=== PATIENT | female | born 1940 | race Caucasian/White ===

== ENCOUNTER 2021-01-08 06:50 | Outpatient (REF) | payer MEDICARE, SELFPAY ==
[2021-01-08 11:42] LABS: Hemoglobin 12.7 g/dl (12.0-16.0); Mean Corpuscular HGB Conc 32.6 g/dl (31.0-35.0); Mean Corpuscular Hemoglobin 29.3 pg (27.0-33.0); Mean Corpuscular Volume 89.9 fL (80-98); Mean Platelet Volume 10.2 fL (9.4-12.3); Platelet Count 297 X10*3/uL (160-400); Red Blood Count 4.34 X10*6/uL (4.20-5.50); Red Cell Distribution Width 13.2 % (11.0-16.0); White Blood Count 6.8 X10*3/uL (4.8-10.8)
[2021-01-08 11:52] LABS: Alanine Aminotransferase 15 U/L (0-31); Albumin Level 3.8 g/dL (3.5-5.0); Alkaline Phosphatase 95 U/L (39-117); Anion Gap 14 (12-20); Aspartate Amino Transferase 17 U/L (5-31); Bilirubin Total 0.7 mg/dL (0.0-1.0); Blood Urea Nitrogen 22 mg/dL (9-16); Calcium 8.8 mg/dL (8.4-10.2); Carbon Dioxide 25 mmol/L (22-29); Chloride 105 mmol/L (96-108); Estimated Glomerular Filt Rate > 60; Glucose Fasting 103 mg/dL (60-99); Potassium 4.2 mmol/L (3.3-5.1); Sodium 140 mmol/L (135-145)
[2021-01-08 12:12] LABS: Thyroid Stimulating Hormone 2.08 uIU/mL (0.32-4.0)
== END 2021-01-08 06:51 | disposition home or self-care (01) ==
LOC: HO.HMGCLDS 06:50
PROVIDERS: PCP Internal Medicine; Visit Provider Internal Medicine
DX: E78.2 Mixed hyperlipidemia (principal); I10 Essential (primary) hypertension
CPT/HCPCS: 36415; 80053; 84443; 85027

== ENCOUNTER 2021-06-29 11:18 | Outpatient (REF) | payer MEDICARE, SELFPAY ==
--- NOTE | ~2021-06-29 | XR_ITS ---
EXAMINATION: XR RIBS, RIGHT CLINICAL INFORMATION: Previous chest x-rays most recent June 2019 COMPARISON: Previous chest x-ray most recent June 2019 TECHNIQUE: 3 views of the right ribs and one view of the chest were obtained. FINDINGS: The cardiac and mediastinal contours are normal. The lungs are clear. There is no pleural effusion or pneumothorax. No right rib fracture or bone lesion is seen. There is an old left sixth rib fracture. There are degenerative changes of the spine. XR/XR ribs RT min 3V w CXR1V IMPRESSION: No evidence for acute disease in the chest. No right rib fracture or bone lesion is seen. Degenerative changes of the spine.
== END 2021-06-29 11:19 | disposition home or self-care (01) ==
LOC: HO.HMGCX 11:18
PROVIDERS: PCP Internal Medicine; Visit Provider Internal Medicine
DX: Z13.89 Encounter for screening for other disorder (principal)
CPT/HCPCS: 71101

== ENCOUNTER 2021-07-24 07:23 | Outpatient (REF) | payer MEDICARE, SELFPAY ==
[2021-07-24 11:45] LABS: Hematocrit 40.2 % (37-47); Hemoglobin 12.9 g/dl (12.0-16.0); Mean Corpuscular HGB Conc 32.1 g/dl (31.0-35.0); Mean Corpuscular Hemoglobin 29.3 pg (27.0-33.0); Mean Corpuscular Volume 91.2 fL (80-98); Mean Platelet Volume 10.2 fL (9.4-12.3); Platelet Count 259 X10*3/uL (160-400); Red Blood Count 4.41 X10*6/uL (4.20-5.50); Red Cell Distribution Width 13.6 % (11.0-16.0); White Blood Count 5.4 X10*3/uL (4.8-10.8)
[2021-07-24 12:36] LABS: Alanine Aminotransferase 14 U/L (0-31); Albumin Level 3.7 g/dL (3.5-5.0); Alkaline Phosphatase 91 U/L (39-117); Anion Gap 14 (12-20); Aspartate Amino Transferase 15 U/L (5-31); Bilirubin Total 0.5 mg/dL (0.0-1.0); Blood Urea Nitrogen 20 mg/dL (9-16); Calcium 9.1 mg/dL (8.4-10.2); Carbon Dioxide 21 mmol/L (22-29); Chloride 110 mmol/L (96-108); Estimated Glomerular Filt Rate > 60; Glucose Fasting 116 mg/dL (60-99); Potassium 4.5 mmol/L (3.3-5.1); Sodium 140 mmol/L (135-145); Total Protein 6.6 g/dL (6.5-8.0)
== END 2021-07-24 07:24 | disposition home or self-care (01) ==
LOC: HO.HMGCLDS 07:23
PROVIDERS: PCP Internal Medicine; Visit Provider Internal Medicine
DX: E78.5 Hyperlipidemia, unspecified (principal); I10 Essential (primary) hypertension
CPT/HCPCS: 36415; 80053; 85027

== ENCOUNTER 2022-04-29 07:35 | Outpatient (REF) | payer MEDICARE, SELFPAY ==
[2022-04-29 11:42] LABS: Hematocrit 40.6 % (37.0-47.0); Hemoglobin 12.8 g/dl (12.0-16.0); Mean Corpuscular HGB Conc 31.5 g/dl (31.0-35.0); Mean Corpuscular Hemoglobin 28.6 pg (27.0-33.0); Mean Corpuscular Volume 90.6 fL (80.0-98.0); Platelet Count 295 X10*3/uL (160-400); Red Blood Count 4.48 X10*6/uL (4.20-5.50); Red Cell Distribution Width 13.3 % (11.0-16.0); White Blood Count 6.6 X10*3/uL (4.8-10.8)
[2022-04-29 12:09] LABS: Alanine Aminotransferase 17 U/L (0-31); Alkaline Phosphatase 93 U/L (39-117); Anion Gap 13 (12-20); Aspartate Amino Transferase 20 U/L (5-31); Bilirubin Total 0.8 mg/dL (0.0-1.0); Blood Urea Nitrogen 23 mg/dL (9-16); Calcium 9.3 mg/dL (8.4-10.2); Carbon Dioxide 25 mmol/L (22-29); Chloride 106 mmol/L (96-108); Cholesterol 205 mg/dL; Estimated Glomerular Filt Rate 58; Glucose Fasting 109 mg/dL (60-99); HDL Cholesterol 42 mg/dL; LDL Cholesterol Calculated 129 mg/dl; Potassium 4.7 mmol/L (3.3-5.1); Sodium 139 mmol/L (135-145); Total Protein 7.1 g/dL (6.5-8.0); Triglycerides 171 mg/dL
[2022-04-29 12:14] LABS: TSH reflex Free T4 2.11 uIU/mL (0.32-4.0)
== END 2022-04-29 07:36 | disposition home or self-care (01) ==
LOC: HO.HMGCLDS 07:35
PROVIDERS: Visit Provider Internal Medicine
DX: E78.5 Hyperlipidemia, unspecified (principal); I10 Essential (primary) hypertension
CPT/HCPCS: 36415; 80053; 80061; 84443; 85027

== ENCOUNTER 2022-07-18 14:37 | Outpatient (REF) | payer MEDICARE, SELFPAY ==
[2022-07-18 14:52] LABS: Appearance Urine Clear; Color Urine Yellow; Glucose Urine UA Negative (Negative); Leukocyte Esterase Urine Trace (Negative); Nitrite Urine Negative (Negative); PH 5.5 (5.0-9.0); Specific Gravity - Urine <= 1.005 (1.005-1.025); UMIC TRIGGER UACC YES; Urine Blood Negative (Negative); Urine Ketones Negative (Negative); Urine Protein Negative (Neg-Trace)
[2022-07-18 14:58] LABS: Bacteria Urine None Seen (None Seen); Hyaline Casts Urine 0-2 /LPF (0-2); RBC Urine 0-2 /HPF (0-2); Squamous Epithelial Cell Urine 0-2 /HPF (0-2); WBC Urine 0-5 /HPF (0-5)
== END 2022-07-18 14:38 | disposition home or self-care (01) ==
LOC: HO.LNP 14:37
PROVIDERS: Visit Provider Internal Medicine
DX: N39.0 Urinary tract infection, site not specified (principal)
CPT/HCPCS: 81001

== ENCOUNTER 2022-11-06 08:00 | Outpatient (REF) | payer MEDICARE, SELFPAY ==
[2022-11-06 11:11] LABS: MANUAL DIFF FLAG NO
[2022-11-06 11:29] LABS: Basophils Absolute Auto 0.1 X10*3/uL (0.0-0.2); Basophils Percent Auto 0.8 % (0-2); Eosinophils Absolute Auto 0.1 X10*3/uL (0.0-0.4); Hematocrit 42.2 % (37.0-47.0); Hemoglobin 13.5 g/dl (12.0-16.0); Imm Gran Abs Auto 0.02 X10*3/uL (0.00-0.03); Imm Gran Pct Auto 0.3 % (0.0-0.4); Lymphocytes Absolute Auto 2.4 X10*3/uL (1.2-4.9); Lymphocytes Percent Auto 37.2 % (20-40); Mean Corpuscular Hemoglobin 28.8 pg (27.0-33.0); Mean Platelet Volume 9.9 fL (9.4-12.3); Monocytes Absolute Auto 0.4 X10*3/uL (0.1-1.2); Monocytes Percent Auto 6.1 % (2-11); Neutrophils Absolute Auto 3.4 x10*3/uL (2.0-8.3); Neutrophils Percent Auto 53.6 % (45-73); Platelet Count 290 X10*3/uL (160-400); Red Blood Count 4.69 X10*6/uL (4.20-5.50); Red Cell Distribution Width 13.2 % (11.0-16.0); White Blood Count 6.4 X10*3/uL (4.8-10.8)
[2022-11-06 11:48] LABS: Alanine Aminotransferase 17 U/L (0-31); Alkaline Phosphatase 103 U/L (39-117); Anion Gap 12 (12-20); Aspartate Amino Transferase 18 U/L (5-31); Bilirubin Total 0.6 mg/dL (0.0-1.0); Blood Urea Nitrogen 15 mg/dL (9-16); Calcium 9.7 mg/dL (8.4-10.2); Carbon Dioxide 26 mmol/L (22-29); Chloride 106 mmol/L (96-108); Cholesterol 232 mg/dL; Estimated Glomerular Filt Rate > 60; Glucose Fasting 111 mg/dL (60-99); HDL Cholesterol 38 mg/dL; LDL Cholesterol Calculated 134 mg/dl; Potassium 4.8 mmol/L (3.3-5.1); Sodium 139 mmol/L (135-145); Total Protein 7.3 g/dL (6.5-8.0); Triglycerides 304 mg/dL
== END 2022-11-06 08:01 | disposition home or self-care (01) ==
LOC: HO.HMGCLDS 08:00
PROVIDERS: PCP Internal Medicine; Visit Provider Internal Medicine
DX: E78.5 Hyperlipidemia, unspecified (principal); I10 Essential (primary) hypertension
CPT/HCPCS: 36415; 80053; 80061; 85025

== ENCOUNTER 2022-11-11 11:44 | Outpatient (REF) | payer MEDICARE, SELFPAY ==
[2022-11-11 14:57] LABS: Erythrocyte Sedimentation Rate 13 MM/HR (0-20)
== END 2022-11-11 11:45 | disposition home or self-care (01) ==
LOC: HO.HMGCLDS 11:44
PROVIDERS: PCP Internal Medicine; Visit Provider Internal Medicine
DX: M25.50 Pain in unspecified joint (principal)
CPT/HCPCS: 36415; 85652

== ENCOUNTER 2023-03-10 11:03 | Outpatient (REF) | payer MEDICARE, SELFPAY ==
--- NOTE | ~2023-03-10 | XR_ITS ---
EXAMINATION: XR SHOULDER, LEFT CLINICAL INFORMATION: Left shoulder pain. COMPARISON: None available. TECHNIQUE: AP, scapular Y, and Grashey views of the left shoulder. FINDINGS: No acute fracture or dislocation. Mild glenohumeral joint space narrowing with marginal osteophytes. Small acromioclavicular marginal osteophytes. Prominent anterior subacromial spurring. No concerning lytic or blastic osseous lesion. Small calcifications adjacent to the greater tuberosity, consistent with distal rotator cuff calcific tendinitis. XR/XR shoulder LT min 2V IMPRESSION: 1. 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 2. Prominent anterior subacromial spurs. 3. Small calcifications adjacent to the greater tuberosity consistent with distal rotator cuff calcific tendinitis.
--- NOTE | ~2023-03-10 | XR_ITS ---
EXAMINATION: XR CHEST CLINICAL INFORMATION: Viral infection. COMPARISON: Most recent rib and chest radiograph dated 06/29/2021. TECHNIQUE: 2 views of the chest were obtained. FINDINGS: The lungs are clear. The cardiomediastinal silhouette is normal in size. There is no pleural effusion or pneumothorax. No acute osseous abnormality. XR/XR chest 2V IMPRESSION: No acute cardiopulmonary findings.
== END 2023-03-10 11:04 | disposition home or self-care (01) ==
LOC: HO.HMGCX 11:03
PROVIDERS: PCP Internal Medicine; Visit Provider Physician Assistant
DX: M25.512 Pain in left shoulder (principal); B34.9 Viral infection, unspecified
CPT/HCPCS: 71046; 73030

== ENCOUNTER 2023-04-15 07:41 | Outpatient (REF) | payer MEDICARE, SELFPAY ==
[2023-04-15 11:18] LABS: MANUAL DIFF FLAG NO
[2023-04-15 11:30] LABS: Basophils Percent Auto 0.5 % (0-2); Eosinophils Absolute Auto 0.1 X10*3/uL (0.0-0.4); Eosinophils Percent Auto 2.1 % (0-4); Hemoglobin 12.2 g/dl (12.0-16.0); Imm Gran Abs Auto 0.02 X10*3/uL (0.00-0.03); Imm Gran Pct Auto 0.4 % (0.0-0.4); Lymphocytes Absolute Auto 2.2 X10*3/uL (1.2-4.9); Lymphocytes Percent Auto 38.8 % (20-40); Mean Corpuscular HGB Conc 31.3 g/dl (31.0-35.0); Mean Corpuscular Hemoglobin 28.6 pg (27.0-33.0); Mean Corpuscular Volume 91.5 fL (80.0-98.0); Monocytes Absolute Auto 0.3 X10*3/uL (0.1-1.2); Monocytes Percent Auto 5.9 % (2-11); Neutrophils Percent Auto 52.3 % (45-73); Platelet Count 313 X10*3/uL (160-400); Red Blood Count 4.26 X10*6/uL (4.20-5.50); Red Cell Distribution Width 13.7 % (11.0-16.0); White Blood Count 5.6 X10*3/uL (4.8-10.8)
[2023-04-15 11:52] LABS: Alanine Aminotransferase 16 U/L (0-31); Albumin Level 3.8 g/dL (3.5-5.0); Alkaline Phosphatase 99 U/L (39-117); Anion Gap 13 (12-20); Aspartate Amino Transferase 18 U/L (5-31); Bilirubin Total 1.1 mg/dL (0.0-1.0); Blood Urea Nitrogen 25 mg/dL (9-16); Calcium 9.3 mg/dL (8.4-10.2); Carbon Dioxide 23 mmol/L (22-29); Chloride 112 mmol/L (96-108); Estimated Glomerular Filt Rate > 60; Glucose Fasting 107 mg/dL (60-99); Potassium 4.5 mmol/L (3.3-5.1); Sodium 143 mmol/L (135-145); Total Protein 6.8 g/dL (6.5-8.0)
[2023-04-15 11:58] LABS: TSH reflex Free T4 2.53 uIU/mL (0.32-4.0)
== END 2023-04-15 07:42 | disposition home or self-care (01) ==
LOC: HO.HMGCLDS 07:41
PROVIDERS: PCP Internal Medicine; Visit Provider Internal Medicine
DX: I10 Essential (primary) hypertension (principal)
CPT/HCPCS: 36415; 80053; 84443; 85025

== ENCOUNTER 2023-04-18 09:10 | Outpatient (REF) | payer MEDICARE, SELFPAY ==
[2023-04-18 11:29] LABS: Appearance Urine Clear; Color Urine Yellow; Glucose Urine UA Negative (Negative); Leukocyte Esterase Urine Trace (Negative); Nitrite Urine Negative (Negative); Specific Gravity - Urine >= 1.030 (1.005-1.025); UMIC TRIGGER UACC YES; Urine Blood Negative (Negative); Urine Ketones Negative (Negative); Urine Protein 30 (1+) mg/dL (Neg-Trace)
[2023-04-18 11:39] LABS: Bacteria Urine None Seen (None Seen); Calcium Oxalate Crystals Urine Present; Hyaline Casts Urine 0-2 /LPF (0-2); WBC Urine 0-5 /HPF (0-5)
== END 2023-04-18 09:11 | disposition home or self-care (01) ==
LOC: HO.LNP 09:10
PROVIDERS: Visit Provider Internal Medicine
DX: N39.0 Urinary tract infection, site not specified (principal)
CPT/HCPCS: 81001

== ENCOUNTER 2023-05-20 10:00 | Outpatient (AMB) | payer MEDICARE, SELFPAY ==
--- NOTE | 2023-05-20 10:09 | A.OFFPC_ITS ---
Vital Signs 05/20/23 10:10 Height 4 ft 9 in Weight 167 lb BMI 36.1 BP 130/68 Blood Pressure Location Lt brachial Position Sitting Pulse 82 Pulse Source Pulse Oximeter Pulse Oximetry (%) 97 Oxygen Delivery Method Room Air Intake Visit Reasons: 1 month follow up Intake Note: Pt is here today for 1 month follow up visit on BP. Pt states that she still has a lot of lower back pain, she finished antibiotic for UTI and she is feeling better however still having frequent urination. Allergies No Known Allergies Allergy (Verified 05/20/23 10:34) Medication List - Last Reconciled 05/20/23 by Mimi Borges MD albuterol sulfate 90 mcg/actuation 2 puffs inhalation Q6H PRN aspirin 81 mg PO DAILY compr.stocking,thigh,reg,large As directed hydrochlorothiazide 12.5 mg PO DAILY irbesartan 150 mg PO DAILY ketoconazole 2% 1 appl topical DAILY meloxicam 15 mg PO DAILY zjqacoff-wyy-lbzx-FA-lutein 8 mg iron-400 mcg-300 mcg (Centrum Silver Women) 1 tab PO DAILY Tobacco use date assessed: 04/18/23 Fall risk assessment: No Falls in past year Last assessed Fall Risk: 05/20/23 Dental Screening Dental Screen Date: 05/20/23 Did you have a dental visit in the last 12 months?: Yes Did you have a dental problem in the last 6 months where you did not have access to dental care?: No Was dental information given to patient?: Patient has dentist HPI 1 month follow up HPI Details Pt presents for HTN, stable on meds. LBP better with home physical therapy. A patient reports feeling anxious but denies depression PFSH Medical History Dysplastic nevus HTN (hypertension) Hyperlipidemia Overweight Venous insufficiency of both lower extremities Surgical History H/O colonoscopy Family History Father No problems noted. Mother No problems noted. Social History Housing: House Patient Tobacco Use Status: Never used Tobacco e-Cigarette/Vaping Use: Never Used Current occupational status: retired Cognitive needs: No Hearing needs: No Vision needs: No Questionnaire Thrive Questionnaire Date Thrive assessed: 05/20/23 I am a: Patient What is your living situation today?: I have a steady place to live Within the past 12 months, did the food you bought not last and you didn't have the money to get more?: Never true Within the past 12 months, did you worry whether your food would run out before you got money to buy more?: Never true Do you have trouble paying for medicines?: No Do you have trouble getting transportation to medical appointments?: No Do you have trouble paying your heating and electricity bill?: No Do you have trouble taking care of your child, family member or friend?: No Do you have trouble with day-to-day activities such as bathing, preparing meals, shopping, managing finances, etc.?: No Are you currently unemployed and looking for a job?: No Are you interested in more education?: No Please select the resources that you would like help with: None Currently or been in a relationship where the following occur: no concerns reported AUDIT C Alcohol Use Questionnaire (AUDIT-C) 1. How often do you have a drink containing alcohol?: Never 3. How often do you have six or more drinks on one occasion?: Never Total Score: 0 MARION-7 AMB Questionnaire MARION-7 Date MARION - 7 assessed: 05/20/23 Feeling nervous, anxious, or on edge: 0 = Not at all Not being able to stop or control worryin = Not at all Worrying too much about different things: 0 = Not at all Trouble relaxin = Not at all Being so restless that it is hard to sit still: 0 = Not at all Becoming easily annoyed or irritable: 0 = Not at all Feeling afraid as if something awful might happen: 0 = Not at all Total MARION-7 score (0-4 normal; 5-9 mild; 10-14 moderate; 15-21 severe): 0 Source: Developed by Drs. Michi Hanna, Maeve Maya, Luis Almaraz and colleagues, with an educational raul from [employer]. Review of Systems Const All systems reviewed & are unremarkable except as noted in HPI and below Reports no additional complaints Eyes Reports no additional complaints ENT Reports no additional complaints Card Reports no additional complaints Resp Reports no additional complaints GI Reports no additional complaints Reports no additional complaints Physical exam (Primary Care) Vital Signs: Last Vital Signs Pulse 82 05/20/23 10:10 BP 130/68 05/20/23 10:10 Pulse Ox 97 05/20/23 10:10 Oxygen Delivery Method Room Air 05/20/23 10:10 BMI result Body Mass Index 36.1 Tobacco/Smoking Status: Tobacco use Status Tobacco use date assessed 04/18/23 05/20/23 10:09 Patient Tobacco Use Status Never used Tobacco 05/20/23 10:09 e-Cigarette/Vaping Use Never Used 05/20/23 10:09 Thrive Assessment: Date of Thrive Assessment Date Thrive assessed 05/20/23 05/20/23 10:39 Currently or been in a relationship where the following occur: no concerns reported Const General: no acute distress HENMT Head: Yes normal to inspection Ears: hearing grossly normal bilaterally Neck Neck: Yes supple Resp Effort & Inspection: normal respiratory effort Auscultation: clear to auscultation bilaterally Cardio Rhythm: regular rhythm Heart sounds: S1 normal heart sound present and S2 normal heart sound present GI Inspection: Yes normal to inspection Palpation (GI): Soft to palpation Percussion: Yes normal to percussion Assessment and Plan Assessment & Plan (1) HTN (hypertension): Code(s): I10 - Essential (primary) hypertension Plan: cont meds (2) Hyperlipidemia: Code(s): E78.5 - Hyperlipidemia, unspecified Plan: cont low cholestrol diet (3) Anxiety: Code(s): F41.9 - Anxiety disorder, unspecified Plan: try Zoloft, f/u 6 months Orders: Orders Comprehensive Met. Panel 6 Months E78.5 - Hyperlipidemia, unspecified, I10 - Essential (primary) hypertension Complete Blood Count Auto Diff 6 Months E78.5 - Hyperlipidemia, unspecified, I10 - Essential (primary) hypertension Medications: New sertraline 25 mg PO DAILY 90 tabs 1RF sertraline 25 mg PO DAILY 90 tabs 1RF Discontinued fluconazole Discontinued Reason: Doctor's Order 150 mg PO Q3D 2 tabs 0RF Coding Level of Care Code Est Pt Level 4 (38932) Diagnoses HTN (hypertension) I10 Hyperlipidemia E78.5 Anxiety F41.9
[2023-05-20 10:10] VITALS: BP 130/68; PULSE 82; O2SAT 97; BMI 36.1
== END 2023-05-20 11:17 | disposition home or self-care (01) ==
PROVIDERS: PCP Internal Medicine; Visit Provider Internal Medicine
DX: I10 Essential (primary) hypertension (principal); E78.5 Hyperlipidemia, unspecified; F41.9 Anxiety disorder, unspecified
CPT/HCPCS: 99214

== ENCOUNTER 2023-11-04 08:22 | Outpatient (REF) | payer MEDICARE, SELFPAY ==
[2023-11-04 11:14] LABS: MANUAL DIFF FLAG NO
[2023-11-04 11:21] LABS: Basophils Percent Auto 0.4 % (0-2); Eosinophils Absolute Auto 0.1 X10*3/uL (0.0-0.4); Eosinophils Percent Auto 1.5 % (0-4); Hematocrit 40.2 % (37.0-47.0); Hemoglobin 13.2 g/dl (12.0-16.0); Imm Gran Abs Auto 0.01 X10*3/uL (0.00-0.03); Imm Gran Pct Auto 0.1 % (0.0-0.4); Lymphocytes Absolute Auto 2.3 X10*3/uL (1.2-4.9); Lymphocytes Percent Auto 34.6 % (20-40); Mean Corpuscular HGB Conc 32.8 g/dl (31.0-35.0); Mean Corpuscular Volume 88.4 fL (80.0-98.0); Mean Platelet Volume 9.9 fL (9.4-12.3); Monocytes Absolute Auto 0.4 X10*3/uL (0.1-1.2); Neutrophils Absolute Auto 3.8 x10*3/uL (2.0-8.3); Neutrophils Percent Auto 57.4 % (45-73); Platelet Count 304 X10*3/uL (160-400); Red Blood Count 4.55 X10*6/uL (4.20-5.50); Red Cell Distribution Width 13.2 % (11.0-16.0); White Blood Count 6.7 X10*3/uL (4.8-10.8)
[2023-11-04 11:49] LABS: Alanine Aminotransferase 14 U/L (0-31); Albumin Level 3.8 g/dL (3.5-5.0); Alkaline Phosphatase 90 U/L (39-117); Anion Gap 13 (12-20); Aspartate Amino Transferase 17 U/L (5-31); Bilirubin Total 0.7 mg/dL (0.0-1.0); Blood Urea Nitrogen 18 mg/dL (9-16); Calcium 9.2 mg/dL (8.4-10.2); Carbon Dioxide 25 mmol/L (22-29); Chloride 106 mmol/L (96-108); Estimated Glomerular Filt Rate > 60; Glucose Random 119 mg/dL (60-115); Potassium 4.1 mmol/L (3.3-5.1); Sodium 140 mmol/L (135-145); Total Protein 7.3 g/dL (6.5-8.0)
== END 2023-11-04 08:23 | disposition home or self-care (01) ==
LOC: HO.HMGCLDS 08:22
PROVIDERS: PCP Internal Medicine; Visit Provider Internal Medicine
DX: I10 Essential (primary) hypertension (principal); E78.5 Hyperlipidemia, unspecified
CPT/HCPCS: 36415; 80053; 85025

== ENCOUNTER 2023-11-11 09:20 | Outpatient (AMB) | payer MEDICARE, SELFPAY ==
[2023-11-11 09:25] VITALS: BP 132/64; PULSE 87; O2SAT 97; BMI 36.1
--- NOTE | 2023-11-11 09:25 | A.OFFVIS_ITS ---
Intake Vital Signs 11/11/23 09:25 Height 4 ft 9 in Weight 167 lb BMI 36.1 BP 132/64 Blood Pressure Location Rt brachial Position Sitting Pulse 87 Pulse Source Pulse Oximeter Pulse Oximetry (%) 97 Oxygen Delivery Method Room Air Intake Visit Reasons: AWV Intake Note: Pt is here today for AWV. Allergies No Known Allergies Allergy (Verified 11/11/23 09:28) Medication List - Last Reconciled 11/11/23 by Mimi Borges MD albuterol sulfate 90 mcg/actuation 2 puffs inhalation Q6H PRN aspirin 81 mg PO DAILY compr.stocking,thigh,reg,large As directed hydrochlorothiazide 12.5 mg PO DAILY irbesartan 150 mg PO DAILY ketoconazole 2% 1 appl topical DAILY meloxicam 15 mg PO DAILY nyzlicap-ktn-bhlt-FA-vit K-lut 8 mg iron-400 mcg-50 mcg (Centrum Silver Women) 1 tab PO DAILY sertraline 25 mg PO DAILY HPI AWV HPI Details Initiated the conversation about Advanced Directives. Advanced Directives help? patients prepare for current and future decisions about their medical treatment? and place of care. Discussed with patient that it is a process where a patients? current condition and prognosis are reviewed, their wishes for information? regarding their illness are elicited, and likely medical dilemmas are presented? and options discussed. The form can be amended as needed, reviewed yearly and? make changes as needed IPPE/AWV ? year old presents? for her ? Annual? Wellness Visit, initial visit.? Medical / Social History Reviewed? Past Medical History ?Yes? . ? [facility]? of Care / Care Team list updated ?Yes . ? Surgical/Hospitalization? History ?Yes . ? Current Medications? (including OTC and supplements) ?Yes . ? Family History ?Yes? . ? Tobacco? Control form ?Yes . ? AUDIT-C (Alcohol use) form? ?Yes . ? Illicit drug use in Social? History ?Yes . ? Current diagnosis of? depression? ?No ? Appropriate PHQ2/PHQ9? completed ?Yes . ? Data entered by ?Medical? Electroplating Technician and reviewed by provider ? Fall Risk ? Fall? History? Have you had any falls with? injury in the past year? ?No . ? Have you had two or more? falls in the past year? ?No . ? Fall Risk Assessment: ?No? falls in the past year . ? HRA filled out by? the patient, reviewed by Provider and scanned. ? IPPE/AWV ? Balance? Romberg? ?Yes . ? Tandem? walk ?Yes . ? Walk and? Turn ?Yes . ? Rise from? sit to stand ?Yes . ?Vision? Corrective? lens ?Yes ? Vision? screen ? Up-to-date, has an appointment [] for vision? screening and glaucoma screening ?Hearing? Whisper? test ?pass .? Initiated the conversation about Advanced Directives. Advanced Directives help? patients prepare for current and future decisions about their medical treatment? and place of care. Discussed with patient that it is a process where a patients? current condition and prognosis are reviewed, their wishes for information? regarding their illness are elicited, and likely medical dilemmas are presented? and options discussed. The form can be amended as needed, reviewed yearly and? make changes as needed Written? Plan?Completed. See Patient? Documents. [facility]LY [facility], [facility] Medical History Dysplastic nevus HTN (hypertension) Hyperlipidemia Overweight Venous insufficiency of both lower extremities Surgical History H/O colonoscopy Family History Father No problems noted. Mother No problems noted. Social History Housing: House Patient Tobacco Use Status: Never used Tobacco e-Cigarette/Vaping Use: Never Used Current occupational status: retired Cognitive needs: No Hearing needs: No Vision needs: No Questionnaire Medicare Wellness Checkup What is your age?: 80 or older What gender do you identify with?: female During the past 4 weeks, how much have you been bothered by emotional problems such as feeling anxious, depressed, irritable, sad or downhearted, and blue?: slightly During the past 4 weeks, has your physical & emotional health limited your social activities with family, friends, neighbors, or groups?: not at all During the past 4 weeks, how much bodily pain have you generally had?: mild pain During the past 4 weeks, was someone available to help you if you needed & wanted help?: yes, as much as I wanted During the past 4 weeks, what was the hardest physical activity you could do for at least 2 minutes?: moderate Can you get to places out of walking distance without help? (For eg., can you travel alone on buses, taxis or drive your car?): Yes Can you go shopping for groceries or clothes without someone's help?: Yes Can you prepare your own meals?: Yes Can you do your housework without help?: Yes Because of any health problems, do you need the help of another person with your personal care needs such as eating, bathing, dressing or getting around the h ouse?: No Can you handle your own money without help?: Yes During the past 4 weeks, how would you rate your health in general?: good During the past 4 weeks how have things been going for you?: good & bad parts about equal Are you having difficulties driving your car?: no Do you always fasten your seat belt when you are in a car?: yes, usually During past 4 weeks, have you been bothered by the following: never: Falling or dizzy when standing up, Sexual problems?, Trouble eating well?, Teeth or denture problems?, Problems using the telephone? and Tiredness or fatigue? Have you fallen 2 or more times in the past year?: No Are you afraid of falling?: No Are you a smoker?: no During the past 4 weeks, how many drinks of wine, beer, or other alcoholic beve rages did you have?: no alcohol at all Do you exercise for about 20 minutes 3 or more times a week?: no, I usually do not exercise this much Have you been given information to help with the following?: no: Hazards in your house that might hurt you? and no: Keeping track of your medications? How often do you have trouble taking medicines the way you have been told to take them?: I always take medicine as prescribed How confident are you that you can control & manage most of your health problems?: very confident What is your race?: White Mini Mental State Exam (MMSE) Orientation What is the (year) (season) (date) (day) (month)?: year, season, date, day and month Where are we (state) (county) (town or city) (hospital) (floor)?: state, county, town or city, hospital/clinic and floor Registration Name of 3 unrelated objects clearly and slowly, then ask patient to repeat all 3 of them. (1st repeat determines score. Make sure they can repeat all three): object 1, object 2 and object 3 Attention & Calculation (CHOOSE ONE) Spell WORLD backwards (DLROW): 5 letters Recall Ask patient to repeat the 3 items from question #3.: object 1, object 2 and object 3 Language Show patient a wristwatch & ask what it is. Repeat for pencil.: watch and pencil Ask the patient to repeat the phrase 'No ifs, ands, or buts' after you.: correct Ask the patient to 'take a piece of paper with their right hand' 'fold paper in half' 'place paper on floor': take paper in right hand and fold paper in half Print the sentence 'CLOSE YOUR EYES' on a piece. If patient actually closes eyes then score.: followed written direction Give patient a blank piece of paper & ask to write a sentence. Score if it contains a noun & verb.: sentence contains subject and verb Score Score: 28 Activity of Daily Living Bathing - sponge bath, tub bath or shower: receives no assistance (gets in/out by self, if usual bathing means Dressing - getting clothes from closets & drawers, including inner/outer garments & fasteners.: gets clothes & gets completely dressed without help Toileting - going to the 'toilet room' for urine/bowel elimination & cleaning self/arranging clothes: goes to toilet room, cleans self, arranges clothes without help Transfer: moves in & out of bed and chair without help (may use support object) Continence: controls urination/bowel movements completely by self Feeding: feeds self without help Total Score: 0 Information obtained from: patient Using telephone: independent Traveling: independent Shopping: independent Preparing meals: independent Housework: independent Taking medicine: independent Managing money: independent PHQ-9 Over the last 2 weeks, how often have you been bothered by any of the following problems? 1. Little interest or pleasure in doing things: not at all 2. Feeling down, depressed, or hopeless: not at all 3. Trouble falling or staying asleep, or sleeping too much: not at all 4. Feeling tired or having little energy: not at all 5. Poor appetite or overeating: not at all 6. Feeling bad about yourself - or that you are a failure or have let yourself or your family down: not at all 7. Trouble concentrating on things, such as reading the newspaper or watching television: not at all 8. Moving or speaking so slowly that other people could have noticed. Or the opposite - being so fidgety or restless that you have been moving around a lot more than usual: not at all 9. Thoughts that you would be better off or of hurting yourself in some way: not at all Total score: 0 Depression Screening Interpretation: Negative Depression Screening Done: Yes Source: Developed by Drs. iMchi Hanna, Maeve Maya, Luis Almaraz and colleagues, with an educational raul from [employer]. Review of Systems Const All systems reviewed & are unremarkable except as noted in HPI and below Reports no additional complaints Eyes Reports no additional complaints ENT Reports no additional complaints Card Reports no additional complaints Resp Reports no additional complaints GI Reports no additional complaints Reports no additional complaints Physical Exam Vital Signs: Last Vital Signs Pulse 87 11/11/23 09:25 BP 132/64 11/11/23 09:25 Pulse Ox 97 11/11/23 09:25 Oxygen Delivery Method Room Air 11/11/23 09:25 BMI result Body Mass Index 36.1 Const General: no acute distress HEENT Head: Yes normal to inspection Eyes General: appearance normal, both eyes and all related structures Neck Neck: Yes no lymphadenopathy and Yes supple Resp Effort & Inspection: normal respiratory effort Auscultation: clear to auscultation bilaterally Cardio Rhythm: regular rhythm Heart sounds: S1 normal heart sound present and S2 normal heart sound present GI Inspection: Yes normal to inspection Palpation (GI): Soft to palpation Percussion: Yes normal to percussion Auscultation: normal bowel sounds Extrem General: Yes no clubbing, cyanosis or edema Assessment & Plan Assessment & Plan (1) HTN (hypertension): Code(s): I10 - Essential (primary) hypertension Plan: Continue current medications (2) Hyperlipidemia: Code(s): E78.5 - Hyperlipidemia, unspecified Plan: Continue low-cholesterol diet increase physical activity weight loss discussed with the patient. Return in 6 months with fasting labs before (3) Annual physical exam: Code(s): Z00.00 - Encounter for general adult medical examination without abnormal findings Plan: Well-balanced diet regular physical activity weight loss discussed with the patient (4) Hyperglycemia: Code(s): R73.9 - Hyperglycemia, unspecified Plan: ADA diet increase physical activity weight loss discussed with the patient Orders: Orders Lipid Panel 6 Months E78.5 - Hyperlipidemia, unspecified, I10 - Essential (primary) hypertension, R73.9 - Hyperglycemia, unspecified, Z00.00 - Encounter for general adult medical examination without abnormal findings Complete Blood Count Auto Diff 6 Months E78.5 - Hyperlipidemia, unspecified, I10 - Essential (primary) hypertension, R73.9 - Hyperglycemia, unspecified, Z00.00 - Encounter for general adult medical examination without abnormal findings Comprehensive [place]. Panel Fast 6 Months E78.5 - Hyperlipidemia, unspecified, I10 - Essential (primary) hypertension, R73.9 - Hyperglycemia, unspecified, Z00.00 - Encounter for general adult medical examination without abnormal findings Hemoglobin A1c 6 Months E78.5 - Hyperlipidemia, unspecified, I10 - Essential (primary) hypertension, R73.9 - Hyperglycemia, unspecified, Z00.00 - Encounter for general adult medical examination without abnormal findings Microalbumin, Random (w Creat) 6 Months E78.5 - Hyperlipidemia, unspecified, I10 - Essential (primary) hypertension, R73.9 - Hyperglycemia, unspecified, Z00.00 - Encounter for general adult medical examination without abnormal findings Medications: New nystatin 1 appl topical BID 60 grams 3RF Refilled ketoconazole 2% 1 appl topical DAILY 60 grams 3RF Quality Reporting (2019) Depression/Bipolar (159/160/161/177) PHQ-9: Total score: 0 Coding Level of Care Code Medicare Subsequent (G0439) Diagnoses HTN (hypertension) I10 Hyperlipidemia E78.5 Annual physical exam Z00.00 Hyperglycemia R73.9 CPT Codes Advance Care Planning - Time spent: 1-15 minutes, not on file ([id number]) Advance Care Planning Advance Care Planning discussion: Exists, not on file Forms completed: Health Care Proxy Time spent: 1-15 minutes, not on file
== END 2023-11-11 10:41 | disposition home or self-care (01) ==
PROVIDERS: PCP Internal Medicine; Visit Provider Internal Medicine
DX: I10 Essential (primary) hypertension (principal); E78.5 Hyperlipidemia, unspecified; Z00.00 Encounter for general adult medical examination without abnormal findings; R73.9 Hyperglycemia, unspecified
CPT/HCPCS: 1124F; G0439

== ENCOUNTER 2024-01-05 08:53 | Outpatient (AMB) | payer MEDICARE, SELFPAY ==
[2024-01-05 09:25] VITALS: BP 162/90; PULSE 92; TEMP 36.9; O2SAT 98; BMI 36.6
--- NOTE | 2024-01-05 09:25 | MHC.OFFWIV ---
Intake Vital Signs 01/05/24 09:25 Height 4 ft 9 in Weight 169 lb BMI 36.6 BP 162/90 H Blood Pressure Location Lt brachial Position Sitting Pulse 92 Pulse Source Pulse Oximeter Temp 98.5 F Temp Source Temporal Artery Scan Pulse Oximetry (%) 98 Oxygen Delivery Method Room Air Intake Visit Reasons: EP LT side hip/knee Pain (lobby) Intake Note: pt is her today for lft side hip and knee pain started Friday Patient Tobacco Use Status: Never used Tobacco Allergies No Known Allergies Allergy (Verified 01/05/24 09:25) Do you need a note to return to daycare/school/sports/work: No HPI HPI Comments History of Present Illness Details 83-year-old female presents today complaining of left lateral hip pain radiating to the left side of her knee for the last 2 days. She states pain began when carrying a heavy pot. Her son is also present for the visit. She states she denies any specific injury fall or trauma to the area. States she has had hip pain in the past that resolved to a course of prednisone. [facility] Medical History Dysplastic nevus HTN (hypertension) Hyperlipidemia Overweight Venous insufficiency of both lower extremities Surgical History H/O colonoscopy Family History Father No problems noted. Mother No problems noted. Social History Housing: House Patient Tobacco Use Status: Never used Tobacco e-Cigarette/Vaping Use: Never Used Current occupational status: retired Cognitive needs: No Hearing needs: No Vision needs: No Review of Systems Const All systems reviewed & are unremarkable except as noted in HPI and below Eyes Reports no additional complaints ENT Reports no additional complaints Card Reports no additional complaints Resp Reports no additional complaints Musc Reports limited range of motion, Reports radiating pain into limb and Reports stiffness Physical Exam Vital Signs: Last Vital Signs Temp 98.5 F 01/05/24 09:25 Pulse 92 01/05/24 09:25 BP 162/90 H 01/05/24 09:25 Pulse Ox 98 01/05/24 09:25 Oxygen Delivery Method Room Air 01/05/24 09:25 BMI result Body Mass Index 36.6 Const General: healthy appearing and in distress moderate Extrem Left lower extremity: hip/thigh Details: normal to inspection, tenderness Location: of the hip, of the proximal upper leg Location: laterally and of the mid upper leg Location: laterally and normal ROM Results Reviewed Results Reviewed: I discussed the results of her x-ray with her. She has moderate osteoarthritis but x-ray of the pelvis shows that these changes are bilateral. No acute fracture present Assessment & Plan Assessment & Plan (1) Left hip pain: Code(s): M25.552 - Pain in left hip Plan The patient will take a short course of descending dose of prednisone. She will follow up with her PCP. Did discuss the option of a cortisone injection of if this does not resolve. I also recommended she use a walker for a few days for pain control and balance. Son understood the recommendations and will assist Orders: Orders XR hip LT w PEL1V Today M25.552 - Pain in left hip Medications: New prednisone take 3 tabs for 3 days, then 2 tabs for 3 days, then 1 tab for 3 days 10 mg PO DIRECTED 20 tabs 0RF Coding Level of Care Code Est Pt Level 3 (38365) Diagnoses Left hip pain M25.552
== END 2024-01-05 10:47 | disposition home or self-care (01) ==
PROVIDERS: PCP Internal Medicine; Visit Provider Physician Assistant Medical
DX: M25.552 Pain in left hip (principal)
CPT/HCPCS: 99213

== ENCOUNTER 2024-01-05 10:01 | Outpatient (REF) | payer MEDICARE, SELFPAY ==
--- NOTE | ~2024-01-05 | XR_ITS ---
EXAMINATION: XR HIP, LEFT CLINICAL INFORMATION: Pain in left hip COMPARISON: None available. TECHNIQUE: Two views of the left hip and AP pelvis. FINDINGS: No fracture. Alignment is anatomic. Hip joint space is maintained. Soft tissues are unremarkable. XR/XR hip LT w PEL1V IMPRESSION: Normal left hip.
== END 2024-01-05 10:02 | disposition home or self-care (01) ==
LOC: HO.HMGCX 10:01
PROVIDERS: Visit Provider Physician Assistant Medical
DX: M25.552 Pain in left hip (principal)
CPT/HCPCS: 73502

== ENCOUNTER 2024-05-14 07:00 | Outpatient (REF) | payer MEDICARE, SELFPAY ==
[2024-05-14 10:23] LABS: MANUAL DIFF FLAG NO
[2024-05-14 10:35] LABS: Basophils Percent Auto 0.5 % (0-2); Eosinophils Absolute Auto 0.1 X10*3/uL (0.0-0.4); Hematocrit 38.9 % (37.0-47.0); Hemoglobin 12.6 g/dl (12.0-16.0); Imm Gran Abs Auto 0.02 X10*3/uL (0.00-0.03); Imm Gran Pct Auto 0.3 % (0.0-0.4); Lymphocytes Absolute Auto 2.1 X10*3/uL (1.2-4.9); Lymphocytes Percent Auto 31.6 % (20-40); Mean Corpuscular HGB Conc 32.4 g/dl (31.0-35.0); Mean Corpuscular Volume 89.4 fL (80.0-98.0); Monocytes Absolute Auto 0.4 X10*3/uL (0.1-1.2); Monocytes Percent Auto 6.1 % (2-11); Neutrophils Absolute Auto 3.9 x10*3/uL (2.0-8.3); Neutrophils Percent Auto 59.5 % (45-73); Platelet Count 280 X10*3/uL (160-400); Red Blood Count 4.35 X10*6/uL (4.20-5.50); Red Cell Distribution Width 13.4 % (11.0-16.0); White Blood Count 6.6 X10*3/uL (4.8-10.8)
[2024-05-14 10:37] LABS: Alanine Aminotransferase 15 U/L (0-31); Albumin Level 3.7 g/dL (3.5-5.0); Alkaline Phosphatase 87 U/L (39-117); Anion Gap 11 (12-20); Aspartate Amino Transferase 16 U/L (5-31); Bilirubin Total 0.5 mg/dL (0.0-1.0); Blood Urea Nitrogen 20 mg/dL (9-16); Calcium 9.8 mg/dL (8.4-10.2); Carbon Dioxide 27 mmol/L (22-29); Chloride 107 mmol/L (96-108); Cholesterol 191 mg/dL (<200); Estimated Glomerular Filt Rate > 60; Glucose Fasting 125 mg/dL (60-99); HDL Cholesterol 38 mg/dL (>40); LDL Cholesterol Calculated 115 mg/dL (<100); Potassium 4.1 mmol/L (3.3-5.1); Sodium 141 mmol/L (135-145); Total Protein 7.2 g/dL (6.5-8.0); Triglycerides 190 mg/dL (<150)
[2024-05-14 10:58] LABS: Estimated Average Glucose 114 mg/dL; Hemoglobin A1c % 5.6 % (<6.0)
[2024-05-14 11:43] LABS: Creatinine Urine 184.62 mg/dL; Microalbum/Creatinine Ratio Ur 4.8 ug/mg cr (<30)
== END 2024-05-14 07:01 | disposition home or self-care (01) ==
LOC: HO.HMGCLDS 07:00
PROVIDERS: PCP Internal Medicine; Visit Provider Internal Medicine
DX: Z00.00 Encounter for general adult medical examination without abnormal findings (principal); R73.9 Hyperglycemia, unspecified; E78.5 Hyperlipidemia, unspecified; I10 Essential (primary) hypertension
CPT/HCPCS: 36415; 80053; 80061; 82043; 82570; 83036; 85025

== ENCOUNTER 2024-05-21 07:51 | Outpatient (AMB) | payer MEDICARE, SELFPAY ==
[2024-05-21 08:12] VITALS: BP 126/66; PULSE 86; O2SAT 95; BMI 35.7
--- NOTE | 2024-05-21 08:12 | MHC.PC.OV ---
Vital Signs 05/21/24 08:12 Height 4 ft 9 in Weight 165 lb BMI 35.7 BP 126/66 Blood Pressure Location Lt brachial Position Sitting Pulse 86 Pulse Source Pulse Oximeter Pulse Oximetry (%) 95 Oxygen Delivery Method Room Air Intake Visit Reasons: 6 month follow up HTN Intake Note: Pt is here today for her 6mo. f/u HTN Allergies No Known Allergies Allergy (Verified 01/05/24 09:25) Medication List - Last Reconciled 05/21/24 by Mimi Borges MD aspirin 81 mg PO DAILY compr.stocking,thigh,reg,large As directed hydrochlorothiazide 12.5 mg PO DAILY hydrocortisone 2.5% 1 appl topical BID PRN irbesartan 150 mg PO DAILY ketoconazole 2% 1 appl topical DAILY oaasczgg-yaa-jycy-FA-vit K-lut 8 mg iron-400 mcg-50 mcg (Centrum Silver Women) 1 tab PO DAILY nystatin 1 appl topical BID Tobacco use date assessed: 05/21/24 Fall risk assessment: No Falls in past year Last assessed Fall Risk: 05/21/24 Dental Screening Dental Screen Date: 05/21/24 Did you have a dental visit in the last 12 months?: Yes Did you have a dental problem in the last 6 months where you did not have access to dental care?: Yes Was dental information given to patient?: Patient has dentist HPI 6 month follow up HTN HPI Details Pt presents for f/u HTN, stable on meds. PFSH Medical History Venous insufficiency of both lower extremities Dysplastic nevus Overweight HTN (hypertension) Hyperlipidemia Surgical History H/O colonoscopy Family History Father No problems noted. Mother No problems noted. Social History Housing: House Patient Tobacco Use Status: Never used Tobacco e-Cigarette/Vaping Use: Never Used Current occupational status: retired Cognitive needs: No Hearing needs: No Vision needs: No Questionnaire Thrive Questionnaire Date Thrive assessed: 05/20/23 MARION-7 AMB Questionnaire MARION-7 Date MARION - 7 assessed: 05/20/23 Source: Developed by Drs. Michi Hanna, Maeve Maya, Luis Almaraz and colleagues, with an educational raul from [employer]. Review of Systems Const All systems reviewed & are unremarkable except as noted in HPI and below Reports no additional complaints Eyes Reports no additional complaints ENT Reports no additional complaints Card Reports no additional complaints Resp Reports no additional complaints GI Reports no additional complaints Reports no additional complaints Physical exam (Primary Care) Vital Signs: Last Vital Signs Pulse 86 05/21/24 08:12 BP 126/66 05/21/24 08:12 Pulse Ox 95 05/21/24 08:12 Oxygen Delivery Method Room Air 05/21/24 08:12 BMI result Body Mass Index 35.7 Tobacco/Smoking Status: Tobacco use Status Tobacco use date assessed 05/21/24 05/21/24 08:17 Patient Tobacco Use Status Never used Tobacco 05/21/24 08:17 e-Cigarette/Vaping Use Never Used 05/21/24 08:17 Thrive Assessment: Date of Thrive Assessment Date Thrive assessed 05/20/23 05/21/24 08:17 Const General: no acute distress HENMT Head: Yes normal to inspection Ears: hearing grossly normal bilaterally General nose exam: Normal external nose present Face and sinus: Yes normal facial exam Eyes General: appearance normal, both eyes and all related structures Neck Neck: Yes supple Resp Effort & Inspection: normal respiratory effort Auscultation: clear to auscultation bilaterally Cardio Rhythm: regular rhythm Heart sounds: S1 normal heart sound present and S2 normal heart sound present GI Inspection: Yes normal to inspection Palpation (GI): Soft to palpation Percussion: Yes normal to percussion Auscultation: normal bowel sounds Assessment and Plan Assessment & Plan (1) Hyperglycemia: Code(s): R73.9 - Hyperglycemia, unspecified Plan: ADA diet regular exercise weight loss discussed with the patient. (2) Hyperlipidemia: Code(s): E78.5 - Hyperlipidemia, unspecified Plan: Continue low-cholesterol diet (3) HTN (hypertension): Code(s): I10 - Essential (primary) hypertension Plan: Continue current medications return in 6 months with a fasting labs before Orders: Orders Lipid Panel 6 Months E78.5 - Hyperlipidemia, unspecified, I10 - Essential (primary) hypertension, R73.9 - Hyperglycemia, unspecified AMB Hemoglobin A1c 6 Months E78.5 - Hyperlipidemia, unspecified, I10 - Essential (primary) hypertension, R73.9 - Hyperglycemia, unspecified, Z13.9 - Encounter for screening, unspecified TSH reflex Free T4 6 Months E78.5 - Hyperlipidemia, unspecified, I10 - Essential (primary) hypertension, R73.9 - Hyperglycemia, unspecified Comprehensive [place]. Panel Fast 6 Months E78.5 - Hyperlipidemia, unspecified, I10 - Essential (primary) hypertension, R73.9 - Hyperglycemia, unspecified Complete Blood Count Auto Diff 6 Months E78.5 - Hyperlipidemia, unspecified, I10 - Essential (primary) hypertension, R73.9 - Hyperglycemia, unspecified Medications: New hydrocortisone 2.5% 1 appl topical BID PRN 28.35 grams 2RF skin irritation Refilled irbesartan 150 mg PO DAILY 90 tabs 3RF hydrochlorothiazide 12.5 mg PO DAILY 90 tabs 3RF Coding Level of Care Code Est Pt Level 4 (16559) Diagnoses Hyperglycemia R73.9 Hyperlipidemia E78.5 HTN (hypertension) I10
== END 2024-05-21 10:04 | disposition home or self-care (01) ==
PROVIDERS: PCP Internal Medicine; Visit Provider Internal Medicine
DX: R73.9 Hyperglycemia, unspecified (principal); E78.5 Hyperlipidemia, unspecified; I10 Essential (primary) hypertension
CPT/HCPCS: 99214

== ENCOUNTER 2024-05-30 07:43 | Emergency (ER) | payer MEDICARE, SELFPAY ==
--- NOTE | ~2024-05-30 | US_ITS ---
EXAMINATION: Right LOWER EXTREMITY DUPLEX CLINICAL INFORMATION: Decreased pulses, pain COMPARISON: None TECHNIQUE: Real-time ultrasound and Doppler techniques (integrating B-mode 2-D vascular images, Doppler spectral analysis and color flow Doppler imaging) were utilized to interrogate the lower extremities. FINDINGS: RIGHT LEG: Common femoral artery: 105 cm/s, multiphasic Profunda femoris artery: 62.7 cm/s, multiphasic Superficial femoral artery (proximal): 84.1 cm/s, multiphasic Superficial femoral artery (mid): 70.8 cm/s, multiphasic Superficial femoral artery (distal): 60.9 cm/s, multiphasic Proximal popliteal artery: 78.2 cm/s, multiphasic Anterior tibial artery: 59.8 cm/s, multiphasic Peroneal artery: 59.8 cm/s, multiphasic Posterior tibial artery: 67.7 cm/s, multiphasic Dorsalis pedis artery: 22.4 cm/s, possibly monophasic US/US arterial duplex LE RT IMPRESSION: Possibly monophasic waveform at the level of the dorsalis pedis artery may suggest distal small vessel disease. There is otherwise no sonographic evidence of hemodynamically significant arterial disease.
--- NOTE | ~2024-05-30 | US_ITS ---
EXAMINATION: US VENOUS ULTRASOUND WITH DOPPLER LOWER EXTREMITY, RIGHT CLINICAL INFORMATION: Pain. Rule out DVT. COMPARISON: None available. TECHNIQUE: Ultrasound of the deep veins is performed from the hip to the calf with compression sonography and color and pulse Doppler assessment. Spectral analysis with color-flow imaging is performed. FINDINGS: There is normal venous compression and respiratory variation and augmented flow. The visualized common femoral vein, superficial femoral vein, profunda femoral vein, popliteal vein, and the trifurcation region shows no evidence of deep venous thrombosis. There is no significant popliteal fossa cyst. If the patient's symptoms persist, followup ultrasound in 5 days 7 days might be of value to exclude proximal propagation from a non-visualized calf vein. US/US venous duplex LE RT IMPRESSION: No DVT demonstrated in the right lower extremity.
[2024-05-30 07:56] VITALS: BP 113/85; PULSE 88; RESP 18; TEMP 37.2; O2SAT 98; BMI 36.8
--- NOTE | 2024-05-30 09:46 | ED.LOWEXIN ---
HPI - Extremity Injury (Lower) General Chief Complaint: Extremity Injury, Lower Stated Complaint: R leg pain Time Seen by Provider: 05/30/24 09:10 Source: patient and family Mode of arrival: ambulatory Limitations: no limitations History of Present Illness ED Provider: Beatriz Covington APRN HPI Narrative: 83-year-old female with history of hypertension, hyperlipidemia, asthma presents the ER with complaints of 3 days of right thigh and calf pain described as throbbing and aching unrelieved with Advil at home. Patient denies any injury or trauma. Pain is worsened with ambulation. She denies any associated numbness, tingling, weakness of the extremity. No redness or swelling of the extremity. No fevers or chills. No chest pain or shortness of breath. She denies any history of DVT or PE. She does take 81 mg of aspirin daily. Related Data Home Medications ?Medication ?Instructions ?Recorded ?Confirmed aspirin 81 mg tablet,delayed 81 mg PO DAILY 01/15/21 05/21/24 release fbqkbvjw-tczf-nhmw 8 mg-folic 400 1 tab PO DAILY 01/15/21 05/21/24 mcg-K 50 mcg-lutein 300 mcg tablet (Centrum Silver Women) Previous Rx's ?Medication ?Instructions ?Recorded compr.stocking,thigh,reg,large #2 ea 01/21/22 ketoconazole 2 % topical cream 1 appl topical DAILY #60 grams 11/11/23 nystatin 100,000 unit/gram topical 1 appl topical BID #60 grams 11/11/23 powder hydrochlorothiazide 12.5 mg tablet 12.5 mg PO DAILY #90 tabs 05/21/24 hydrocortisone 2.5 % topical cream 1 appl topical BID PRN skin 05/21/24 irritation #28.35 grams irbesartan 150 mg tablet 150 mg PO DAILY #90 tabs 05/21/24 cyclobenzaprine 5 mg tablet 10 mg (2 x 5 mg) PO TID PRN muscle 05/30/24 spasm #9 tabs diclofenac sodium 1 % topical gel 4 g topical QID #100 grams 05/30/24 (Voltaren Arthritis Pain) Allergies Allergy/AdvReac Type Severity Reaction Status Date / Time No Known Allergies Allergy Verified 05/30/24 07:59 Review of Systems Review of Systems: Yes all other systems are reviewed and are negative Constitutional: Constitutional: Reports no additional constitutional complaints, Denies body ache(s), Denies chills, Denies fever(s), Denies headache(s) and Denies weakness Eyes: Eyes: Reports no additional eye complaints and Denies change in vision ENT: Reports system reviewed and no additional complaints, except as documented, Denies dizziness, Denies headache(s), Denies nasal congestion, Denies nasal discharge and Denies neck pain Cardiovascular: Cardiovascular: Reports no additional cardiovascular complaints, Denies chest pain, Denies leg edema and Denies dyspnea Respiratory: Respiratory: Reports no additional respiratory complaints, Denies cough and Denies dyspnea Gastrointestinal: Gastrointestinal: Reports no additional gastrointestinal complaints, Denies abdominal pain, Denies diarrhea, Denies nausea and Denies vomiting Genitourinary: Genitourinary: Reports no additional female genitourinary complaints and Denies urinary incontinence Musculoskeletal: Musculoskeletal: Reports no additional musculoskeletal complaints, Denies back pain, Denies arthralgias, Denies joint swelling, Denies neck pain, Denies numbness, Reports radiating pain into limb and Denies tingling Integumentary/Breasts: Skin/Breast: Reports system reviewed and no additional complaints, except as docu and Denies rash Neurologic: Reports system reviewed and no additional complaints, except as documented, Denies Abnormal speech present, Denies dizziness, Denies headache(s), Denies numbness, Denies tingling and Denies weakness PMFSH Past Medical History Attestation statement: The following information was validated with the patient. Source: old records reviewed and nursing notes reviewed Medical History Venous insufficiency of both lower extremities Dysplastic nevus Overweight HTN (hypertension) Hyperlipidemia Surgical History H/O colonoscopy Family History Family History Father No problems noted. Mother No problems noted. Social History Social History Housing: House Patient Tobacco Use Status: Never used Tobacco e-Cigarette/Vaping Use: Never Used Advance Directives: No Advance Directives Information Provided: Yes Do you have a plan to hurt others: No Plan Current occupational status: retired Cognitive needs: No Hearing needs: No Vision needs: No Physical Exam Vital Signs: Vital Signs: Last Vital Signs Temp 97 F 05/30/24 11:58 Pulse 65 05/30/24 11:58 Resp 16 05/30/24 11:58 BP 156/66 H 05/30/24 11:58 Pulse Ox 98 05/30/24 11:58 O2 Del Method Room Air 05/30/24 11:58 BMI result Body Mass Index 36.8 Const: General: cooperative, healthy appearing, comfortable and no acute distress Orientation/consciousness: patient oriented x3 Limitations: no limitations HEENT: Head: Yes normal to inspection Ears: hearing grossly normal bilaterally General nose exam: Normal external nose present Face and sinus: Yes normal facial exam Mouth: Normal oral and palatal mucosa present Throat: Yes posterior oropharynx normal Eyes: General: appearance normal, both eyes and all related structures Pupils: Equal, round and reactive pupils present Neck: Neck: Yes normal visual inspection Chest: Chest palpation & inspection: normal inspection of the chest Resp: Effort & Inspection: normal respiratory effort Auscultation: clear to auscultation bilaterally Cardio: Rate: regular rate Rhythm: regular rhythm Peripheral pulses: Peripheral pulses 2+ throughout GI: Inspection: Yes normal to inspection Palpation (GI): Soft to palpation and nontender Auscultation: normal bowel sounds Back/Spine/Pelvis: Thoracic/Lumbar Spine: thoracic and lumbar spine normal to inspection Skin: General skin exam: no rashes or lesions noted Neuro: General: patient oriented x3, no focal motor deficits and normal sensation to monofilament Cranial nerves: Yes Equal, round and reactive pupils present Cognition (Neuro): normal cognition Speech: No Abnormal speech present Gait exam (Neuro): Normal gait present Motor exam (neuro): 5/5 motor strength present throughout Extrem: Other: Pain on palpation to the soft tissues of the right thigh/calf. Discoloration/varicosities noted around the ankle No swelling, redness or warmth. No bony tenderness with FROM of joints. Normal sensation. Doppler DP/PT pulses General: Yes normal to inspection Course Course Course Narrative: Ultrasound shows mild arterial disease but no evidence of occlusion. Venous ultrasound is negative for DVT. Labs are unremarkable. I reviewed the findings with the patient. I will send her home with supportive measures recommendations follow up with primary care doctor. Reviewed worrisome signs and symptoms of when to return to the emergency room. Comfortable plan for discharge home. Medical Decision Making Medical Decision Making [facility] Narrative: 83-year-old female with history of hypertension, hyperlipidemia, asthma presents the ER with complaints of 3 days of right thigh and calf pain described as throbbing and aching unrelieved with Advil at home. Patient denies any injury or trauma. Pain is worsened with ambulation. She denies any associated numbness, tingling, weakness of the extremity. No redness or swelling of the extremity. No fevers or chills. No chest pain or shortness of breath. She denies any history of DVT or PE. She does take 81 mg of aspirin daily. Pain on palpation to the soft tissues of the right thigh/calf. Discoloration/varicosities noted around the ankle No swelling, redness or warmth. No bony tenderness with FROM of joints. Normal sensation. Doppler DP/PT pulses Will obtain labs, arterial/venous US Differential Diagnosis Differential Diagnoses: The differential diagnosis associated with the presentation includes PAD, PVD, DVT Low suspician for cellulites, bony abnormality Admission/Observation Consideration of admission/observation: Escalation of care including admission/observation considered Lab Data [facility] Lab Attestation statement: I reviewed the patient's lab results. 05/30/24 09:59 05/30/24 09:59 Labs: Lab Results 05/30/24 Range/Units 09:59 WBC 6.1 (4.8-10.8) X10*3/uL RBC 4.13 L (4.20-5.50) X10*6/uL Hgb 12.3 (12.0-16.0) g/dl Hct 36.2 L (37.0-47.0) % MCV 87.7 (80.0-98.0) fL MCH 29.8 (27.0-33.0) pg MCHC 34.0 (31.0-35.0) g/dl RDW 13.7 (11.0-16.0) % Plt Count 281 (160-400) X10*3/uL MPV 9.3 L (9.4-12.3) fL Immature Gran % (Auto) 0.2 (0.0-0.4) % Neut % (Auto) 50.7 (45-73) % Lymph % (Auto) 39.8 (20-40) % Isabella % (Auto) 7.2 (2-11) % Eos % (Auto) 1.6 (0-4) % Baso % (Auto) 0.5 (0-2) % Lymph # (Auto) 2.4 (1.2-4.9) X10*3/uL Isabella # (Auto) 0.4 (0.1-1.2) X10*3/uL Eos # (Auto) 0.1 (0.0-0.4) X10*3/uL Baso # (Auto) 0.0 (0.0-0.2) X10*3/uL Abs Immat Gran (auto) 0.01 (0.00-0.03) X10*3/uL Absolute Neuts (auto) 3.1 (2.0-8.3) x10*3/uL Absolute Nucleated RBC 0.000 (0.0-0.012) X10*3/uL Nucleated RBC % (auto) 0.0 (0.0-0.2) /100WBC PT 10.7 L (11.1-13.3) SEC INR 0.9 (0.9-1.1) Sodium 140 (135-145) mmol/L Potassium 3.9 (3.3-5.1) mmol/L Chloride 109 H (96-108) mmol/L Carbon Dioxide 22 (22-29) mmol/L Anion Gap 13 (12-20) BUN 20 H (9-16) mg/dL Creatinine 0.75 (0.5-1.4) mg/dL Estim Creat Clear Calc 45.4 Estimated GFR > 60 Random Glucose 102 (60-115) mg/dL Calcium 9.6 (8.4-10.2) mg/dL Total Bilirubin 0.3 (0.0-1.0) mg/dL Direct Bilirubin 0.1 (0.0-0.5) mg/dL AST 15 (5-31) U/L ALT 15 (0-31) U/L Alkaline Phosphatase 85 (39-117) U/L Total Creatine Kinase 103 (26-140) U/L Total Protein 7.1 (6.5-8.0) g/dL Albumin 3.7 (3.5-5.0) g/dL Independent Interpretation I performed an independent interpretation of an: Ultrasound Interpretation: I independently reviewed the ultrasound agree with the radiology report Radiology Impression Discussion of test interpretation with radiology: I have reviewed the radiologist's reading. Radiologist Impression: [address] [address] Ultrasound Report Signed Patient: Nadine Andersen MR#: [id number] : 1940 Acct:[id number] Age/Sex: 83 / F ADM Date: 05/30/24 Loc: .ED Attending Dr: Ordering Physician: Beatriz Lindo NP Date of Service: 05/30/24 Procedure(s): US venous duplex LE RT Accession Number(s): [id number] cc: Mimi Borges MD; Beatriz Lindo FORM TAMPING MACHINE OPERATOR~ EXAMINATION: US VENOUS ULTRASOUND WITH DOPPLER LOWER EXTREMITY, RIGHT CLINICAL INFORMATION: Pain. Rule out DVT. COMPARISON: None available. TECHNIQUE: Ultrasound of the deep veins is performed from the hip to the calf with compression sonography and color and pulse Doppler assessment. Spectral analysis with color-flow imaging is performed. FINDINGS: There is normal venous compression and respiratory variation and augmented flow. The visualized common femoral vein, superficial femoral vein, profunda femoral vein, popliteal vein, and the trifurcation region shows no evidence of deep venous thrombosis. There is no significant popliteal fossa cyst. If the patient's symptoms persist, followup ultrasound in 5 days 7 days might be of value to exclude proximal propagation from a non-visualized calf vein. US/US venous duplex LE RT IMPRESSION: No DVT demonstrated in the right lower extremity. [address] [address] Ultrasound Report Signed Patient: Nadine Andersen MR#: [id number] : 1940 Acct:[id number] Age/Sex: 83 / F ADM Date: 05/30/24 Loc: .ED Attending Dr: Ordering Physician: Beatriz Lindo NP Date of Service: 05/30/24 Procedure(s): US arterial duplex LE RT Accession Number(s): [id number] cc: Mimi Borges MD; Beatriz Lindo FORM TAMPING MACHINE OPERATOR~ EXAMINATION: Right LOWER EXTREMITY DUPLEX CLINICAL INFORMATION: Decreased pulses, pain COMPARISON: None TECHNIQUE: Real-time ultrasound and Doppler techniques (integrating B-mode 2-D vascular images, Doppler spectral analysis and color flow Doppler imaging) were utilized to interrogate the lower extremities. FINDINGS: RIGHT LEG: Common femoral artery: 105 cm/s, multiphasic Profunda femoris artery: 62.7 cm/s, multiphasic Superficial femoral artery (proximal): 84.1 cm/s, multiphasic Superficial femoral artery (mid): 70.8 cm/s, multiphasic Superficial femoral artery (distal): 60.9 cm/s, multiphasic Proximal popliteal artery: 78.2 cm/s, multiphasic Anterior tibial artery: 59.8 cm/s, multiphasic Peroneal artery: 59.8 cm/s, multiphasic Posterior tibial artery: 67.7 cm/s, multiphasic Dorsalis pedis artery: 22.4 cm/s, possibly monophasic US/US arterial duplex LE RT IMPRESSION: Possibly monophasic waveform at the level of the dorsalis pedis artery may suggest distal small vessel disease. There is otherwise no sonographic evidence of hemodynamically significant arterial disease. Independent Historian Clinical information obtained from an independent historian. History obtained from or confirmed by: Other (daughter) Discharge Plan Discharge Clinical Impression: Acute leg pain Patient Disposition: Home, Self-Care Instructions: Leg Pain (ED) Additional Instructions: Continue Motrin or Tylenol Heat or ice to the area Follow-up with your primary care doctor for any continued symptoms Prescriptions: New cyclobenzaprine 5 mg tablet 10 mg PO TID PRN (Reason: muscle spasm) Qty: 9 0RF diclofenac sodium [Voltaren Arthritis Pain] 1 % gel 4 g topical QID Qty: 100 0RF Rx Instructions: apply to single affected area No Action aspirin 81 mg tablet,delayed release (DR/EC) 81 mg PO DAILY Centrum Silver Women 8 mg iron-400 mcg-300 mcg tablet 1 tab PO DAILY (DME) compr.stocking,thigh,reg,large Misc See Rx Instructions .Route Qty: 2 0RF Rx Instructions: As directed nystatin 100,000 unit/gram powder 1 appl topical BID Qty: 60 3RF ketoconazole 2 % cream 1 appl topical DAILY Qty: 60 3RF hydrocortisone 2.5 % cream 1 appl topical BID PRN (Reason: skin irritation) Qty: 28.35 2RF hydrochlorothiazide 12.5 mg tablet 12.5 mg PO DAILY Qty: 90 3RF irbesartan 150 mg tablet 150 mg PO DAILY Qty: 90 3RF Referrals: Mimi Borges MD [Primary Care Provider] - 1 week Interventions: ED Discharge Assessment Last Done: 05/30/24 11:58 Discharge Date/Time: 05/30/24 11:59 Print Language: Mauritanian
--- NOTE | 2024-05-30 09:59 | PC.NURSE ---
labs drawn per order
[2024-05-30 10:03] LABS: MANUAL DIFF FLAG NO
[2024-05-30 10:04] LABS: Basophils Percent Auto 0.5 % (0-2); Eosinophils Absolute Auto 0.1 X10*3/uL (0.0-0.4); Eosinophils Percent Auto 1.6 % (0-4); Hematocrit 36.2 % (37.0-47.0); Hemoglobin 12.3 g/dl (12.0-16.0); Imm Gran Abs Auto 0.01 X10*3/uL (0.00-0.03); Imm Gran Pct Auto 0.2 % (0.0-0.4); Lymphocytes Absolute Auto 2.4 X10*3/uL (1.2-4.9); Lymphocytes Percent Auto 39.8 % (20-40); Mean Corpuscular Hemoglobin 29.8 pg (27.0-33.0); Mean Corpuscular Volume 87.7 fL (80.0-98.0); Mean Platelet Volume 9.3 fL (9.4-12.3); Monocytes Absolute Auto 0.4 X10*3/uL (0.1-1.2); Monocytes Percent Auto 7.2 % (2-11); Neutrophils Absolute Auto 3.1 x10*3/uL (2.0-8.3); Neutrophils Percent Auto 50.7 % (45-73); Platelet Count 281 X10*3/uL (160-400); Red Blood Count 4.13 X10*6/uL (4.20-5.50); Red Cell Distribution Width 13.7 % (11.0-16.0); White Blood Count 6.1 X10*3/uL (4.8-10.8)
--- NOTE | 2024-05-30 10:04 | PC.NURSE ---
US at bedside
[2024-05-30 10:09] LABS: INTERNATIONAL NORM RATIO 0.9 (0.9-1.1); Prothrombin Time 10.7 SEC (11.1-13.3)
[2024-05-30 10:32] LABS: Alanine Aminotransferase 15 U/L (0-31); Albumin Level 3.7 g/dL (3.5-5.0); Alkaline Phosphatase 85 U/L (39-117); Anion Gap 13 (12-20); Aspartate Amino Transferase 15 U/L (5-31); Bilirubin Direct 0.1 mg/dL (0.0-0.5); Bilirubin Total 0.3 mg/dL (0.0-1.0); Blood Urea Nitrogen 20 mg/dL (9-16); Calcium 9.6 mg/dL (8.4-10.2); Carbon Dioxide 22 mmol/L (22-29); Chloride 109 mmol/L (96-108); Creatinine Clr Calc Pharmacy 45.4; Estimated Glomerular Filt Rate > 60; Glucose Random 102 mg/dL (60-115); Potassium 3.9 mmol/L (3.3-5.1); Sodium 140 mmol/L (135-145); Total Protein 7.1 g/dL (6.5-8.0)
[2024-05-30 11:30] VITALS: BP 156/66; PULSE 65; RESP 16; TEMP 36.1; O2SAT 98
[2024-05-30 11:58] VITALS: BP 156/66; PULSE 65; RESP 16; TEMP 36.1; O2SAT 98
== END 2024-05-30 11:59 | disposition home or self-care (01) ==
PROVIDERS: Nurse Practitioner Family; Emergency Provider Emergency Medicine; PCP Internal Medicine
DX: M79.604 Pain in right leg (principal); R60.0 Localized edema; Z79.899 Other long term (current) drug therapy
CPT/HCPCS: 36415; 80048; 80076; 82550; 85025; 85610; 93926; 93971; 99283

== ENCOUNTER 2024-06-02 08:04 | Outpatient (AMB) | payer MEDICARE, SELFPAY ==
[2024-06-02 08:07] VITALS: BP 138/72; PULSE 86; O2SAT 98; BMI 37.0
--- NOTE | 2024-06-02 08:07 | MHC.PC.OV ---
Vital Signs 06/02/24 08:07 Height 4 ft 8 in Weight 165 lb BMI 37.0 BP 138/72 Blood Pressure Location Rt brachial Position Sitting Pulse 86 Pulse Source Pulse Oximeter Pulse Oximetry (%) 98 Oxygen Delivery Method Room Air Intake Visit Reasons: ER follow up Intake Note: Pt is here today for a ER follow up visit. Pt states that she went to [facility] ER due to R leg pain in the groin area and goes down her leg. Pt states that she had u/s done for DVT and it was negative. Pt states that she was given muscle relaxer but she is still in a lot of pain. Pt states that she cant sleep. Allergies No Known Allergies Allergy (Verified 06/02/24 08:12) Medication List - Last Reconciled 06/02/24 by Mimi Borges MD aspirin 81 mg PO DAILY compr.stocking,thigh,reg,large As directed cyclobenzaprine 10 mg (2 x 5 mg) PO TID PRN diclofenac sodium 1% (Voltaren Arthritis Pain) 4 grams topical QID hydrochlorothiazide 12.5 mg PO DAILY hydrocortisone 2.5% 1 appl topical BID PRN irbesartan 150 mg PO DAILY ketoconazole 2% 1 appl topical DAILY xixrsubi-nka-opro-FA-vit K-lut 8 mg iron-400 mcg-50 mcg (Centrum Silver Women) 1 tab PO DAILY nystatin 1 appl topical BID Tobacco use date assessed: 05/21/24 Fall risk assessment: No Falls in past year Last assessed Fall Risk: 06/02/24 Dental Screening Dental Screen Date: 05/21/24 HPI ER follow up HPI Details Pt presents c/o anterior RLE pain for 4 days. Patient went to the ER had negative right lower extremity Doppler. The pain is worse when patient is walking but also at night. She denies any injury, lower back pain, weakness or numbness in extremity. [facility] Medical History Venous insufficiency of both lower extremities Dysplastic nevus Overweight HTN (hypertension) Hyperlipidemia Surgical History H/O colonoscopy Family History Father No problems noted. Mother No problems noted. Social History Housing: House Patient Tobacco Use Status: Never used Tobacco e-Cigarette/Vaping Use: Never Used service: No Current occupational status: retired Cognitive needs: No Hearing needs: No Vision needs: No Questionnaire Thrive Questionnaire Date Thrive assessed: 05/20/23 MARION-7 AMB Questionnaire MARION-7 Date MARION - 7 assessed: 05/20/23 Source: Developed by Drs. Michi Hanna, Maeve Maya, Luis Almaraz and colleagues, with an educational raul from [employer]. Review of Systems Const All systems reviewed & are unremarkable except as noted in HPI and below Eyes Reports no additional complaints ENT Reports no additional complaints Card Reports no additional complaints Resp Reports no additional complaints GI Reports no additional complaints Physical exam (Primary Care) Vital Signs: Last Vital Signs Pulse 86 06/02/24 08:07 BP 138/72 06/02/24 08:07 Pulse Ox 98 06/02/24 08:07 Oxygen Delivery Method Room Air 06/02/24 08:07 BMI result Body Mass Index 37.0 Tobacco/Smoking Status: Tobacco use Status Tobacco use date assessed 05/21/24 06/02/24 08:15 Patient Tobacco Use Status Never used Tobacco 06/02/24 08:15 e-Cigarette/Vaping Use Never Used 06/02/24 08:15 Thrive Assessment: Date of Thrive Assessment Date Thrive assessed 05/20/23 06/02/24 08:15 Const General: no acute distress Resp Effort & Inspection: normal respiratory effort Auscultation: clear to auscultation bilaterally Cardio Rhythm: regular rhythm Heart sounds: S1 normal heart sound present and S2 normal heart sound present Extrem Other: Right lower extremity there is no soft tissue swelling erythema and warmth, no calf tenderness, right knee with full range of motion straight leg rising 40 degrees on the right 90 degrees on the left. Assessment and Plan Assessment & Plan (1) Radiculitis: Code(s): M54.10 - Radiculopathy, site unspecified Plan: Prednisone taper is prescribed and supportive care discussed with the patient. She declined PT Medications: New prednisone 4 tabl qd for 3 days, then 3 tabl qd for 3 days, 2 tabl qd for 3 days, then 1 tabl qd x 3 days 10 mg PO DAILY 30 tabs 0RF Coding Level of Care Code Est Pt Level 3 (48245) Diagnoses Radiculitis M54.10
== END 2024-06-02 08:39 | disposition home or self-care (01) ==
PROVIDERS: PCP Internal Medicine; Visit Provider Internal Medicine
DX: M54.10 Radiculopathy, site unspecified (principal)
CPT/HCPCS: 99213

== ENCOUNTER 2024-10-20 13:21 | Outpatient (AMB) | payer MEDICARE, SELFPAY ==
--- NOTE | 2024-10-20 13:52 | MHC.PC.OV ---
Vital Signs 10/20/24 13:56 Height 4 ft 8 in Weight 167 lb BMI 37.4 BP 130/66 Blood Pressure Location Rt brachial Position Sitting Pulse 92 Pulse Source Pulse Oximeter Pulse Oximetry (%) 98 Oxygen Delivery Method Room Air Intake Visit Reasons: Bilateral ear pain Intake Note: Pt is here today for a sick visit. Pt c/o headaches for over a week now and very dry and itchy skin behind her ears Allergies No Known Allergies Allergy (Verified 10/20/24 14:09) Medication List - Last Reconciled 10/20/24 by Mimi Borges MD aspirin 81 mg PO DAILY azithromycin For 250 mg dose pack: take 500 mg today (day 1), then 250 mg for 4 days (days 2-5) PO clotrimazole-betamethasone 1-0.05 % 1 appl topical BID compr.stocking,thigh,reg,large As directed cyclobenzaprine 10 mg (2 x 5 mg) PO TID PRN diclofenac sodium 1% (Voltaren Arthritis Pain) 4 grams topical QID hydrochlorothiazide 12.5 mg PO DAILY hydrocortisone 2.5% 1 appl topical BID PRN irbesartan 150 mg PO DAILY ketoconazole 2% 1 appl topical DAILY fyfwychq-xab-wmgx-FA-vit K-lut 8 mg iron-400 mcg-50 mcg (Centrum Silver Women) 1 tab PO DAILY nystatin 1 appl topical BID Tobacco use date assessed: 10/20/24 Fall risk assessment: No Falls in past year Last assessed Fall Risk: 10/20/24 Dental Screening Dental Screen Date: 05/21/24 HPI Bilateral ear pain HPI Details Pt c/o sinus headache nasal congestion sore throat and postnasal drip for 2 weeks. Patient denies cough chills pleurisy. She complains of itchy rash behind her ears for 2 weeks. She tried hydrocortisone cream without improvement. She denies using new laundry detergents, shampoo or jewelry. Hypertension is controlled on current medications. [facility] Medical History Venous insufficiency of both lower extremities Dysplastic nevus Overweight HTN (hypertension) Hyperlipidemia Surgical History H/O colonoscopy Family History Father No problems noted. Mother No problems noted. Social History Housing: House Patient Tobacco Use Status: Never used Tobacco e-Cigarette/Vaping Use: Never Used service: No Current occupational status: retired Cognitive needs: No Hearing needs: No Vision needs: No Questionnaire PHQ-9 Over the last 2 weeks, how often have you been bothered by any of the following problems? 1. Little interest or pleasure in doing things: not at all 2. Feeling down, depressed, or hopeless: not at all 3. Trouble falling or staying asleep, or sleeping too much: several days 4. Feeling tired or having little energy: several days 5. Poor appetite or overeating: several days 6. Feeling bad about yourself - or that you are a failure or have let yourself or your family down: not at all 7. Trouble concentrating on things, such as reading the newspaper or watching television: not at all 8. Moving or speaking so slowly that other people could have noticed. Or the opposite - being so fidgety or restless that you have been moving around a lot more than usual: not at all 9. Thoughts that you would be better off or of hurting yourself in some way: not at all Total score: 3 Depression Screening Interpretation: Negative Depression Screening Done: Yes [id number] - PHQ-9 Billing: Yes Source: Developed by Drs. Michi Hanna, Maeve Maya, Luis Almaraz and colleagues, with an educational raul from [employer]. Thrive Questionnaire Date Thrive assessed: 05/20/23 I am a: Patient What is your living situation today?: I have a steady place to live Within the past 12 months, did the food you bought not last and you didn't have the money to get more?: Never true Within the past 12 months, did you worry whether your food would run out before you got money to buy more?: Never true Do you have trouble paying for medicines?: No Do you have trouble getting transportation to medical appointments?: No Do you have trouble paying your heating and electricity bill?: No Do you have trouble taking care of your child, family member or friend?: No Do you have trouble with day-to-day activities such as bathing, preparing meals, shopping, managing finances, etc.?: No Are you currently unemployed and looking for a job?: No Are you interested in more education?: No Please select the resources that you would like help with: None Currently or been in a relationship where the following occur: No concerns reported THRIVE Score: 0 AUDIT C Alcohol Use Questionnaire (AUDIT-C) 1. How often do you have a drink containing alcohol?: Never Total Score: 0 MARION-7 AMB Questionnaire MARION-7 Date MARION - 7 assessed: 05/20/23 Feeling nervous, anxious, or on edge: 0 = Not at all Not being able to stop or control worryin = Not at all Worrying too much about different things: 0 = Not at all Trouble relaxin = Not at all Being so restless that it is hard to sit still: 0 = Not at all Becoming easily annoyed or irritable: 0 = Not at all Feeling afraid as if something awful might happen: 0 = Not at all Total MARION-7 score (0-4 normal; 5-9 mild; 10-14 moderate; 15-21 severe): 0 Source: Developed by Drs. Michi Hanna, Maeve Maya, Luis Almaraz and colleagues, with an educational raul from [employer]. Review of Systems Const All systems reviewed & are unremarkable except as noted in HPI and below Eyes Reports no additional complaints ENT Reports no additional complaints Card Reports no additional complaints Resp Reports no additional complaints GI Reports no additional complaints Physical exam (Primary Care) Vital Signs: Last Vital Signs Pulse 92 10/20/24 13:56 BP 130/66 10/20/24 13:56 Pulse Ox 98 10/20/24 13:56 Oxygen Delivery Method Room Air 10/20/24 13:56 BMI result Body Mass Index 37.4 Tobacco/Smoking Status: Tobacco use Status Tobacco use date assessed 10/20/24 10/20/24 13:56 Patient Tobacco Use Status Never used Tobacco 10/20/24 13:52 e-Cigarette/Vaping Use Never Used 10/20/24 13:52 PHQ-9: PHQ-9 Score PHQ-9: Total score 3 10/20/24 13:52 Depression Screening Interpretation: Negative Thrive Assessment: Date of Thrive Assessment Date Thrive assessed 05/20/23 10/20/24 13:52 Currently or been in a relationship where the following occur: No concerns reported Const General: no acute distress HENMT Head: Yes normal to inspection Ears: TM's normal bilaterally and other (Erythematous scaly rash behind both ears) Face and sinus: Yes sinus tenderness Mouth: Normal oral and palatal mucosa present Throat: Yes postnasal drainage Eyes General: appearance normal, both eyes and all related structures Neck Neck: Yes supple Resp Effort & Inspection: normal respiratory effort Auscultation: clear to auscultation bilaterally Cardio Rhythm: regular rhythm Heart sounds: S1 normal heart sound present and S2 normal heart sound present Coding Level of Care Code Est Pt Level 3 (30541) Diagnoses Sinusitis J32.9 Acute eczema L30.9 Additional Codes PHQ-9 - 74360 - PHQ-9 Billing: Yes ([id number]) Assessment & Plan Assessment & Plan (1) Sinusitis: Code(s): J32.9 - Chronic sinusitis, unspecified Category: Medical Plan: Z-Paulino as prescribed and supportive care discussed with the patient (2) Acute eczema: Code(s): L30.9 - Dermatitis, unspecified Category: Medical Plan: Try Lotrisone cream Medications: New clotrimazole-betamethasone 1-0.05 % 1 appl topical BID 15 grams 0RF azithromycin For 250 mg dose pack: take 500 mg today (day 1), then 250 mg for 4 days (days 2-5) PO 6 tabs 0RF
[2024-10-20 13:56] VITALS: BP 130/66; PULSE 92; O2SAT 98; BMI 37.4
== END 2024-10-20 14:46 | disposition home or self-care (01) ==
PROVIDERS: PCP Internal Medicine; Visit Provider Internal Medicine
DX: J32.9 Chronic sinusitis, unspecified (principal); L30.9 Dermatitis, unspecified

== ENCOUNTER → 2024-10-20 13:21 | Outpatient (BNVA) | payer MEDICARE, SELFPAY | PROVIDERS: PCP Internal Medicine; Visit Provider Internal Medicine | DX: J32.9 Chronic sinusitis, unspecified (principal); L30.9 Dermatitis, unspecified | CPT/HCPCS: 96127; 99212 ==

== ENCOUNTER 2024-12-17 07:31 | Outpatient (REF) | payer MEDICARE, SELFPAY ==
--- OUTSIDE RECORDS SUMMARY | 2024-12-17 07:33 | XMS_ITS | Clinical Summary ---
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 Role Phone Unavailable Primary Care Provider Unavailabl e Social History Tobacco Use Types Packs/Day Years Used Date Smoking Tobacco: Never Assessed Comments Unknown Sex and Gender Information Value Date Recorded Sex Assigned at Not on file Legal Sex Female 10:20 AM EST Gender Identity Not on file Sexual Orientation Not on file Plan of Treatment Health Maintenance Due Date Last Done Comments DTaP,Tdap,and Td Vaccines (1 - Tdap) 1958 Zoster Vaccines (1 of 2) 1989 Pneumococcal Vaccine: 50+ Ye ars (1 of 1 - PCV) 2004 RSV Immunization Patients 60 + Years Old (1 - 1-dose 75+ series) 2014 Depression Screening 10/06/2022 Falls Risk Assessment 10/06/2022 Osteoporosis Screening (Bone Density Screening) 10/06/2022 Social Influencers of Health Screening 10/06/2022 COVID-19 Vaccine ( - 2023-2 5 season) 2024 Influenza Vaccine (#1) 2024 HIB Vaccines Aged Out No longer eligi ble based on patient's age to complete this topic HPV Vaccines Aged Out No longer eligi ble based on patient's age to complete this topic Hepatitis A Vaccines Aged Out No long er eligible based on patient's age to complete this topic Hepatitis B Vaccines Aged Out No long er eligible based on patient's age to complete this topic IPV Vaccines Aged Out No longer eligi ble based on patient's age to complete this topic MMR Vaccines Aged Out No longer eligi ble based on patient's age to complete this topic Meningococcal ACWY Vaccine Aged Out N o longer eligible based on patient's age to complete this topic RSV Immunization Patients Un julieth 20 months Aged Out No longer eligible b ased on patient's age to complete this topic Varicella Vaccines Aged Out No longer eligible based on patient's age to complete this topic
[2024-12-17 09:46] LABS: MANUAL DIFF FLAG NO
[2024-12-17 10:05] LABS: Basophils Percent Auto 0.8 % (0-2); Eosinophils Absolute Auto 0.2 X10*3/uL (0.0-0.4); Eosinophils Percent Auto 3.2 % (0-4); Hematocrit 40.2 % (37.0-47.0); Hemoglobin 12.9 g/dl (12.0-16.0); Imm Gran Abs Auto 0.01 X10*3/uL (0.00-0.03); Imm Gran Pct Auto 0.2 % (0.0-0.4); Lymphocytes Absolute Auto 1.6 X10*3/uL (1.2-4.9); Lymphocytes Percent Auto 33.3 % (20-40); Mean Corpuscular HGB Conc 32.1 g/dl (31.0-35.0); Mean Corpuscular Hemoglobin 28.7 pg (27.0-33.0); Mean Corpuscular Volume 89.3 fL (80.0-98.0); Mean Platelet Volume 9.9 fL (9.4-12.3); Monocytes Absolute Auto 0.6 X10*3/uL (0.1-1.2); Monocytes Percent Auto 12.3 % (2-11); Neutrophils Absolute Auto 2.4 x10*3/uL (2.0-8.3); Neutrophils Percent Auto 50.2 % (45-73); Platelet Count 266 X10*3/uL (160-400); Red Cell Distribution Width 13.9 % (11.0-16.0); White Blood Count 4.7 X10*3/uL (4.8-10.8)
[2024-12-17 10:41] LABS: Alanine Aminotransferase 20 U/L (0-31); Albumin Level 3.8 g/dL (3.5-5.0); Alkaline Phosphatase 86 U/L (39-117); Anion Gap 13 (12-20); Aspartate Amino Transferase 25 U/L (5-31); Bilirubin Total 0.7 mg/dL (0.0-1.0); Blood Urea Nitrogen 24 mg/dL (9-16); Calcium 9.2 mg/dL (8.4-10.2); Carbon Dioxide 22 mmol/L (22-29); Chloride 108 mmol/L (96-108); Cholesterol 192 mg/dL (<200); Estimated Glomerular Filt Rate > 60; Glucose Fasting 113 mg/dL (60-99); HDL Cholesterol 38 mg/dL (>40); LDL Cholesterol Calculated 123 mg/dL (<100); Potassium 3.8 mmol/L (3.3-5.1); Sodium 139 mmol/L (135-145); Total Protein 7.5 g/dL (6.5-8.0); Triglycerides 155 mg/dL (<150)
== END 2024-12-17 07:32 | disposition home or self-care (01) ==
LOC: HO.HMGCLDS 07:31
PROVIDERS: PCP Internal Medicine; Visit Provider Internal Medicine
DX: I10 Essential (primary) hypertension (principal); E78.5 Hyperlipidemia, unspecified; R73.9 Hyperglycemia, unspecified
CPT/HCPCS: 36415; 80053; 80061; 84443; 85025

== ENCOUNTER 2024-12-23 09:18 | Outpatient (AMB) | payer MEDICARE, SELFPAY ==
[2024-12-23 09:30] VITALS: BP 114/62; PULSE 77; RESP 16; TEMP 36.5; O2SAT 97; BMI 38.3
--- NOTE | 2024-12-23 09:30 | A.OFFVIS_ITS ---
Intake Vital Signs 12/23/24 09:30 Height 4 ft 8 in Weight 171 lb BMI 38.3 BP 114/62 Blood Pressure Location Lt brachial Position Sitting Respiration 16 Pulse 77 Pulse Source Pulse Oximeter Temp 97.7 F Temp Source Oral Pulse Oximetry (%) 97 Oxygen Delivery Method Room Air Intake Visit Reasons: AWV Intake Note: Pt is here today for her AWV Allergies No Known Allergies Allergy (Verified 12/23/24 09:34) Medication List - Last Reconciled 12/23/24 by Mimi Borges MD compr.stocking,thigh,reg,large As directed hydrochlorothiazide 12.5 mg PO DAILY irbesartan 150 mg PO DAILY exsvzavd-mpr-mghk-FA-vit K-lut 8 mg iron-400 mcg-50 mcg (Centrum Silver Women) 1 tab PO DAILY nystatin 1 appl topical BID HPI AWV HPI Details PATIENT PRESENTS FOR ANNUAL VISIT. SHE COMPLAINS OF 1 WEEK OF PRODUCTIVE COUGH CONGESTION POSTNASAL DRIP CHILLS AND A LOW-GRADE FEVER BODY ACHES. She denies pleurisy shortness or breath PND orthopnea. Initiated the conversation about Advanced Directives. Advanced Directives help? patients prepare for current and future decisions about their medical treatment? and place of care. Discussed with patient that it is a process where a patients? current condition and prognosis are reviewed, their wishes for information? regarding their illness are elicited, and likely medical dilemmas are presented? and options discussed. The form can be amended as needed, reviewed yearly and? make changes as needed IPPE/AWV ? year old presents? for her ? Annual? Wellness Visit, initial visit.? Medical / Social History Reviewed? Past Medical History ?Yes? . ? [place]? of Care / Care Team list updated ?Yes . ? Surgical/Hospitalization? History ?Yes . ? Current Medications? (including OTC and supplements) ?Yes . ? Family History ?Yes? . ? Tobacco? Control form ?Yes . ? AUDIT-C (Alcohol use) form? ?Yes . ? Illicit drug use in Social? History ?Yes . ? Current diagnosis of? depression? ?No ? Appropriate PHQ2/PHQ9? completed ?Yes . ? Data entered by ?Medical? [facility] and reviewed by provider ? Fall Risk ? Fall? History? Have you had any falls with? injury in the past year? ?No . ? Have you had two or more? falls in the past year? ?No . ? Fall Risk Assessment: ?No? falls in the past year . ? HRA filled out by? the patient, reviewed by Provider and scanned. ? IPPE/AWV ? Balance? Romberg? ?Yes . ? Tandem? walk ?Yes . ? Walk and? Turn ?Yes . ? Rise from? sit to stand ?Yes . ?Vision? Corrective? lens ?Yes ? Vision? screen ? Up-to-date, has an appointment [] for vision? screening and glaucoma screening ?Hearing? Whisper? test ?pass .? Initiated the conversation about Advanced Directives. Advanced Directives help? patients prepare for current and future decisions about their medical treatment? and place of care. Discussed with patient that it is a process where a patients? current condition and prognosis are reviewed, their wishes for information? regarding their illness are elicited, and likely medical dilemmas are presented? and options discussed. The form can be amended as needed, reviewed yearly and? make changes as needed Written? Plan?Completed. See Patient? Documents. [facility] Medical History Venous insufficiency of both lower extremities Dysplastic nevus Overweight HTN (hypertension) Hyperlipidemia Surgical History H/O colonoscopy Family History Father No problems noted. Mother No problems noted. Social History Housing: House Patient Tobacco Use Status: Never used Tobacco e-Cigarette/Vaping Use: Never Used service: No Current occupational status: retired Cognitive needs: No Hearing needs: No Vision needs: No Questionnaire Medicare Wellness Checkup What is your age?: 79 or older What gender do you identify with?: female During the past 4 weeks, how much have you been bothered by emotional problems such as feeling anxious, depressed, irritable, sad or downhearted, and blue?: not at all During the past 4 weeks, has your physical & emotional health limited your social activities with family, friends, neighbors, or groups?: not at all During the past 4 weeks, how much bodily pain have you generally had?: very mild pain During the past 4 weeks, was someone available to help you if you needed & wa nted help?: yes, as much as I wanted During the past 4 weeks, what was the hardest physical activity you could do for at least 2 minutes?: light Can you get to places out of walking distance without help? (For eg., can you travel alone on buses, taxis or drive your car?): Yes Can you go shopping for groceries or clothes without someone's help?: Yes Can you prepare your own meals?: Yes Can you do your housework without help?: Yes Because of any health problems, do you need the help of another person with your personal care needs such as eating, bathing, dressing or getting around the house?: No Can you handle your own money without help?: Yes During the past 4 weeks, how would you rate your health in general?: good During the past 4 weeks how have things been going for you?: pretty well Are you having difficulties driving your car?: no Do you always fasten your seat belt when you are in a car?: yes, usually During past 4 weeks, have you been bothered by the following: never: Falling or dizzy when standing up, Sexual problems?, Trouble eating well?, Teeth or denture problems?, Problems using the telephone? and Tiredness or fatigue? Have you fallen 2 or more times in the past year?: No Are you afraid of falling?: No Are you a smoker?: no During the past 4 weeks, how many drinks of wine, beer, or other alcoholic beverages did you have?: 1 drink or less per week Do you exercise for about 20 minutes 3 or more times a week?: no, I usually do not exercise this much Have you been given information to help with the following?: yes: Hazards in your house that might hurt you? and yes: Keeping track of your medications? How often do you have trouble taking medicines the way you have been told to take them?: I always take medicine as prescribed How confident are you that you can control & manage most of your health problems?: somewhat confident What is your race?: White Mini Mental State Exam (MMSE) Orientation What is the (year) (season) (date) (day) (month)?: year, season, date, day and month Where are we (state) (county) (town or city) (hospital) (floor)?: state, county, town or city, hospital/clinic and floor Registration Name of 3 unrelated objects clearly and slowly, then ask patient to repeat all 3 of them. (1st repeat determines score. Make sure they can repeat all three): object 1, object 2 and object 3 Attention & Calculation (CHOOSE ONE) Spell WORLD backwards (DLROW): 5 letters Recall Ask patient to repeat the 3 items from question #3.: object 1, object 2 and object 3 Language Show patient a wristwatch & ask what it is. Repeat for pencil.: watch and pencil Ask the patient to repeat the phrase 'No ifs, ands, or buts' after you.: correct Ask the patient to 'take a piece of paper with their right hand' 'fold paper in half' 'place paper on floor': take paper in right hand, fold paper in half and place paper on floor Print the sentence 'CLOSE YOUR EYES' on a piece. If patient actually closes eyes then score.: followed written direction Give patient a blank piece of paper & ask to write a sentence. Score if it contains a noun & verb.: sentence contains subject and verb Score Score: 29 PHQ-9 Over the last 2 weeks, how often have you been bothered by any of the following problems? 1. Little interest or pleasure in doing things: not at all 2. Feeling down, depressed, or hopeless: not at all 3. Trouble falling or staying asleep, or sleeping too much: not at all 4. Feeling tired or having little energy: not at all 5. Poor appetite or overeating: not at all 6. Feeling bad about yourself - or that you are a failure or have let yourself or your family down: not at all 7. Trouble concentrating on things, such as reading the newspaper or watching television: not at all 8. Moving or speaking so slowly that other people could have noticed. Or the opposite - being so fidgety or restless that you have been moving around a lot more than usual: not at all 9. Thoughts that you would be better off or of hurting yourself in some way: not at all Total score: 0 Depression Screening Interpretation: Negative Depression Screening Done: Yes 07409 - PHQ-9 Billing: Yes Source: Developed by Drs. Michi Hanna, Maeve Maya, Luis Almaraz and colleagues, with an educational raul from [employer]. Review of Systems Const All systems reviewed & are unremarkable except as noted in HPI and below Reports no additional complaints Eyes Reports no additional complaints ENT Reports no additional complaints Card Reports no additional complaints Resp Reports no additional complaints GI Reports no additional complaints Reports no additional complaints Physical Exam Vital Signs: Last Vital Signs Temp 97.7 F 12/23/24 09:30 Pulse 77 12/23/24 09:30 Resp 16 12/23/24 09:30 BP 114/62 12/23/24 09:30 Pulse Ox 97 12/23/24 09:30 Oxygen Delivery Method Room Air 12/23/24 09:30 BMI result Body Mass Index 38.3 Const General: no acute distress HEENT Head: Yes normal to inspection Ears: TM's normal bilaterally Face and sinus: Yes normal facial exam Throat: Yes postnasal drainage Eyes General: appearance normal, both eyes and all related structures Neck Neck: Yes no lymphadenopathy and Yes supple Resp Effort & Inspection: normal respiratory effort Auscultation: rhonchi Cardio Rhythm: regular rhythm Heart sounds: S1 normal heart sound present and S2 normal heart sound present GI Inspection: Yes normal to inspection Palpation (GI): Soft to palpation Percussion: Yes normal to percussion Auscultation: normal bowel sounds Extrem General: Yes no clubbing, cyanosis or edema Assessment & Plan Assessment & Plan (1) Annual physical exam: Code(s): Z00.00 - Encounter for general adult medical examination without abnormal findings Plan: Well-balanced diet regular physical activity discussed with the patient. (2) Hyperlipidemia: Code(s): E78.5 - Hyperlipidemia, unspecified Plan: Continue statin (3) HTN (hypertension): Code(s): I10 - Essential (primary) hypertension Plan: Continue current medications (4) Tracheobronchitis: Code(s): J40 - Bronchitis, not specified as acute or chronic Plan: Rob and Heide Soto prescribed and supportive care discussed with the patient. (5) Hyperglycemia: Code(s): R73.9 - Hyperglycemia, unspecified Plan: ADA diet regular physical activity discussed with the patient follow-up in 6 months with a fasting labs before Orders: Orders Comprehensive Cook. Panel Fast 6 Months I10 - Essential (primary) hypertension, R73.9 - Hyperglycemia, unspecified Hemoglobin A1c 6 Months I10 - Essential (primary) hypertension, R73.9 - Hyperglycemia, unspecified Medications: New azithromycin For 250 mg dose pack: take 500 mg today (day 1), then 250 mg for 4 days (days 2-5) PO 6 tabs 0RF benzonatate 100 mg PO TID 30 caps 0RF Refilled hydrochlorothiazide 12.5 mg PO DAILY 90 tabs 3RF irbesartan 150 mg PO DAILY 90 tabs 3RF Quality Reporting (2019) Depression/Bipolar (159/160/161/177) PHQ-9: Total score: 0 Coding Level of Care Code Medicare Subsequent (G0439) Diagnoses Annual physical exam Z00.00 Hyperlipidemia E78.5 HTN (hypertension) I10 Tracheobronchitis J40 Hyperglycemia R73.9 CPT Codes Advance Care Planning - Advance Care Planning discussion: On file, no changes ([id number]) Advance Care Planning - Time spent: 1-15 minutes, on File ([id number]) Additional Codes PHQ-9 - 12050 - PHQ-9 Billing: Yes ([id number]) Advance Care Planning Advance Care Planning discussion: On file, no changes Forms completed: Health Care Proxy Time spent: 1-15 minutes, on File Did not discuss due to Cultural/Spiritual beliefs: Yes
--- OUTSIDE RECORDS SUMMARY | 2024-12-23 10:02 | XMS_ITS | Clinical Summary ---
[facility] [address] [place] [address] Care Team Providers Care Offset Second Press Operator Name Role Phone Unavailable Primary Care [...] DTaP,Tdap,and Td Vaccines (1 - Tdap) 1959 Pneumococcal Vaccine: 50+ Ye ars (1 of 1 - PCV) 1989 Zoster Vaccines (1 of 2) 1989 RSV Immunization Patients 60 + Years Old [...] patient's age to complete this topic Meningococcal B Vacine Aged Out No lo nger eligible based on patient's age to complete this topic RSV Immunization Patients Un julieth 20 months Aged Out No longer eligible b ased on patient's age to complete this topic Varicella Vaccines Aged Out No longer eligible based on patient's age to complete this topic
== END 2024-12-23 10:03 | disposition home or self-care (01) ==
PROVIDERS: PCP Internal Medicine; Visit Provider Internal Medicine
DX: Z00.00 Encounter for general adult medical examination without abnormal findings (principal); E78.5 Hyperlipidemia, unspecified; I10 Essential (primary) hypertension; J40 Bronchitis, not specified as acute or chronic; R73.9 Hyperglycemia, unspecified

== ENCOUNTER → 2024-12-23 09:18 | Outpatient (BNVA) | payer MEDICARE, SELFPAY | PROVIDERS: PCP Internal Medicine; Visit Provider Internal Medicine | DX: Z00.00 Encounter for general adult medical examination without abnormal findings (principal); E78.5 Hyperlipidemia, unspecified; I10 Essential (primary) hypertension; J40 Bronchitis, not specified as acute or chronic; R73.9 Hyperglycemia, unspecified | CPT/HCPCS: 96127 ==

== ENCOUNTER 2025-02-01 11:30 | Outpatient (AMB) | payer MEDICARE, SELFPAY ==
[2025-02-01 11:53] VITALS: BP 124/82; PULSE 86; RESP 20; TEMP 36.3; O2SAT 95; BMI 38.6
--- NOTE | 2025-02-01 11:53 | MHC.PC.OV ---
Vital Signs 02/01/25 11:53 Height 4 ft 8 in Weight 172 lb BMI 38.6 BP 124/82 Blood Pressure Location Lt brachial Position Sitting Respiration 20 Pulse 86 Pulse Source Pulse Oximeter Temp 97.3 F Temp Source Oral Pulse Oximetry (%) 95 Oxygen Delivery Method Room Air Intake Visit Reasons: Cough congestion Intake Note: Pt is here today for a sick visit. Pt c/o cough since Friday. Pt states that the cough is worst at night and can not sleep. Pt also c/o stubbing pain in the lung area. Allergies No Known Allergies Allergy (Verified 02/01/25 11:53) Tobacco use date assessed: 02/01/25 Fall risk assessment: No Falls in past year Last assessed Fall Risk: 02/01/25 Dental Screening Dental Screen Date: 02/01/25 Did you have a dental visit in the last 12 months?: No Did you have a dental problem in the last 6 months where you did not have access to dental care?: No Was dental information given to patient?: Patient declined HPI Cough congestion HPI Details Pt c/o chest congestion dry cough sinus congestion postnasal drip for 1 week. She denies fever chills pleurisy. Hypertension is controlled on current medications. [facility] Medical History Venous insufficiency of both lower extremities Dysplastic nevus Overweight HTN (hypertension) Hyperlipidemia Surgical History H/O colonoscopy Family History Father No problems noted. Mother No problems noted. Social History Housing: House Patient Tobacco Use Status: Never used Tobacco e-Cigarette/Vaping Use: Never Used service: No Current occupational status: retired Cognitive needs: No Hearing needs: No Vision needs: No Questionnaire Thrive Questionnaire Date Thrive assessed: 10/20/24 I am a: Patient What is your living situation today?: I have a steady place to live Within the past 12 months, did the food you bought not last and you didn't have the money to get more?: Never true Within the past 12 months, did you worry whether your food would run out before you got money to buy more?: Never true Do you have trouble paying for medicines?: No Do you have trouble getting transportation to medical appointments?: No Do you have trouble paying your heating and electricity bill?: No Do you have trouble taking care of your child, family member or friend?: No Do you have trouble with day-to-day activities such as bathing, preparing meals, shopping, managing finances, etc.?: No Are you currently unemployed and looking for a job?: No Are you interested in more education?: No Please select the resources that you would like help with: None Currently or been in a relationship where the following occur: No concerns reported THRIVE Score: 0 MARION-7 AMB Questionnaire MARION-7 Date MARION - 7 assessed: 05/20/23 Source: Developed by Drs. Michi Hanna, Maeve Maya, Luis Almaraz and colleagues, with an educational raul from [employer]. Review of Systems Const All systems reviewed & are unremarkable except as noted in HPI and below Eyes Reports no additional complaints ENT Reports no additional complaints Card Reports no additional complaints Resp Reports no additional complaints GI Reports no additional complaints Physical exam (Primary Care) Vital Signs: Last Vital Signs Temp 97.3 F 02/01/25 11:53 Pulse 86 02/01/25 11:53 Resp 20 02/01/25 11:53 BP 124/82 02/01/25 11:53 Pulse Ox 95 02/01/25 11:53 Oxygen Delivery Method Room Air 02/01/25 11:53 BMI result Body Mass Index 38.6 Tobacco/Smoking Status: Tobacco use Status Tobacco use date assessed 02/01/25 02/01/25 11:55 Patient Tobacco Use Status Never used Tobacco 02/01/25 11:55 e-Cigarette/Vaping Use Never Used 02/01/25 11:55 Thrive Assessment: Date of Thrive Assessment Date Thrive assessed 10/20/24 02/01/25 11:55 Currently or been in a relationship where the following occur: No concerns reported Const General: no acute distress HENMT Head: Yes normal to inspection Ears: TM's normal bilaterally Face and sinus: Yes sinus tenderness Throat: Yes postnasal drainage Eyes General: appearance normal, both eyes and all related structures Resp Effort & Inspection: normal respiratory effort Auscultation: rhonchi Cardio Rhythm: regular rhythm Heart sounds: S1 normal heart sound present and S2 normal heart sound present GI Inspection: Yes normal to inspection Palpation (GI): Soft to palpation Coding Level of Care Code Est Pt Level 3 (65114) Diagnoses Sinusitis J32.9 HTN (hypertension) I10 Assessment & Plan Assessment & Plan (1) Sinusitis: Code(s): J32.9 - Chronic sinusitis, unspecified Category: Medical Plan: Z-Paulino is prescribed and supportive care discussed with the patient (2) HTN (hypertension): Code(s): I10 - Essential (primary) hypertension Category: Medical Plan: Continue current medications
--- OUTSIDE RECORDS SUMMARY | 2025-02-01 13:58 | XMS_ITS | Clinical Summary ---
[facility] Address [address] [place] [address] Care Team Providers Care Layout Designer Name Role Phone Unavailable Primary Care Provider [...]
== END 2025-02-01 12:35 | disposition home or self-care (01) ==
LOC: HO.HMCC 11:31
PROVIDERS: PCP Internal Medicine; Visit Provider Internal Medicine
DX: J32.9 Chronic sinusitis, unspecified (principal); I10 Essential (primary) hypertension

== ENCOUNTER → 2025-02-01 11:30 | Outpatient (BNVA) | payer MEDICARE, SELFPAY | PROVIDERS: PCP Internal Medicine; Visit Provider Internal Medicine | DX: J32.9 Chronic sinusitis, unspecified (principal); I10 Essential (primary) hypertension | CPT/HCPCS: 99212 ==

== ENCOUNTER 2025-02-03 11:51 | Outpatient (REF) | payer MEDICARE, SELFPAY ==
--- NOTE | ~2025-02-03 | XR_ITS ---
EXAMINATION: XR CHEST CLINICAL INFORMATION: R05.9 - Cough, unspecified COMPARISON: 03/10/2023, 06/14/2019. TECHNIQUE: 2 views of the chest were obtained. FINDINGS: The cardiac, hilar, and mediastinal contours are normal. Aortic mural calcification. The lungs are clear bilaterally. There is no pneumothorax or pleural effusion. There is no focal osseous or soft tissue abnormality. Mild degenerative changes in the shoulders and spine. XR/XR chest 2V IMPRESSION: No active pulmonary disease. Electronically signed by: Rudy Llanos MD 02/04/2025 09:10 AM EDT
--- OUTSIDE RECORDS SUMMARY | 2025-02-03 13:13 | XMS_ITS | Clinical Summary ---
[facility] [address] [place] [address] Care Team Providers Care Fire Control Officer Name Role Phone Unavailable Primary Care Provider [...] Vaccines (1 of 2) 1989 RSV Immunization Adult Patie nts (1 - 1-dose 75+ series) 2014 Depression [...]
== END 2025-02-03 11:52 | disposition home or self-care (01) ==
LOC: HO.HMGCX 11:51
PROVIDERS: PCP Internal Medicine; Visit Provider Internal Medicine
DX: R05.9 Cough, unspecified (principal)
CPT/HCPCS: 71046

== ENCOUNTER → 2025-02-03 11:54 | Outpatient (BNV) | payer MEDICARE, SELFPAY | PROVIDERS: PCP Internal Medicine; Visit Provider Radiology Diagnostic Radiology | DX: R05.9 Cough, unspecified (principal) | CPT/HCPCS: 71046 ==

== ENCOUNTER 2025-07-08 08:32 | Outpatient (AMB) | payer MEDICARE, SELFPAY ==
[2025-07-08 08:43] VITALS: BP 120/68; PULSE 82; RESP 18; TEMP 36.6; O2SAT 97; BMI 38.3
--- NOTE | 2025-07-08 08:43 | A.OFFPC_ITS ---
Vital Signs 07/08/25 08:43 Height 4 ft 8 in Weight 171 lb BMI 38.3 BP 120/68 Blood Pressure Location Rt brachial Position Sitting Respiration 18 Pulse 82 Pulse Source Pulse Oximeter Temp 97.9 F Temp Source Oral Pulse Oximetry (%) 97 Oxygen Delivery Method Room Air Intake Visit Reasons: 6 months f/up RE Intake Note: Pt is here today for 6 months follow up visit. Pt states that she has been having L side arm worst at night. Pt states that it started with a lump on her shoulder. Pt also c/o chills. Allergies No Known Allergies Allergy (Verified 07/08/25 08:48) Medication List - Last Reconciled 07/08/25 by Mmii Borges MD compr.stocking,thigh,reg,large As directed hydrochlorothiazide 12.5 mg PO DAILY irbesartan 150 mg PO DAILY meloxicam 15 mg PO DAILY ebguaaoy-epr-nyjq-FA-vit K-lut 8 mg iron-400 mcg-50 mcg (Centrum Silver Women) 1 tab PO DAILY nystatin 1 appl topical BID Tobacco use date assessed: 07/08/25 Fall risk assessment: No Falls in past year Last assessed Fall Risk: 07/08/25 Dental Screening Dental Screen Date: 02/01/25 HPI 6 months f/up RE HPI Details Pt presents for f/u HTN. Pt c/o growing mass in the posterior aspect of L shoulder for a few weeks getting more painful. Patient reports pain radiating to left upper chest and L shoulder. The pain is worse when patient is trying to use her left shoulder while lying on the bed. [facility] Medical History (Updated 07/08/25 @ 09:20 by Mimi Borges MD) Mass of joint of left shoulder Venous insufficiency of both lower extremities Dysplastic nevus Overweight HTN (hypertension) Hyperlipidemia Surgical History H/O colonoscopy Family History Father No problems noted. Mother No problems noted. Social History Housing: House Patient Tobacco Use Status: Never used Tobacco e-Cigarette/Vaping Use: Never Used service: No Current occupational status: retired Cognitive needs: No Hearing needs: No Vision needs: No Questionnaire Thrive Questionnaire Date Thrive assessed: 10/20/24 I am a: Patient What is your living situation today?: I have a steady place to live Within the past 12 months, did the food you bought not last and you didn't have the money to get more?: Never true Within the past 12 months, did you worry whether your food would run out before you got money to buy more?: Never true Do you have trouble paying for medicines?: No Do you have trouble getting transportation to medical appointments?: No Do you have trouble paying your heating and electricity bill?: No Do you have trouble taking care of your child, family member or friend?: No Do you have trouble with day-to-day activities such as bathing, preparing meals, shopping, managing finances, etc.?: No Are you currently unemployed and looking for a job?: No Are you interested in more education?: No Please select the resources that you would like help with: None Currently or been in a relationship where the following occur: No concerns reported THRIVE Score: 0 MARION-7 AMB Questionnaire MARION-7 Date MARION - 7 assessed: 05/20/23 Source: Developed by Drs. Michi Hanna, Maeve Maya, Luis Almaraz and colleagues, with an educational raul from [employer]. Review of Systems Const All systems reviewed & are unremarkable except as noted in HPI and below Eyes Reports no additional complaints ENT Reports no additional complaints Card Reports no additional complaints Resp Reports no additional complaints GI Reports no additional complaints Reports no additional complaints Physical exam (Primary Care) Vital Signs: Last Vital Signs Temp 97.9 F 07/08/25 08:43 Pulse 82 07/08/25 08:43 Resp 18 07/08/25 08:43 BP 120/68 07/08/25 08:43 Pulse Ox 97 07/08/25 08:43 Oxygen Delivery Method Room Air 07/08/25 08:43 BMI result Body Mass Index 38.3 Tobacco/Smoking Status: Tobacco use Status Tobacco use date assessed 07/08/25 07/08/25 08:52 Patient Tobacco Use Status Never used Tobacco 07/08/25 08:52 e-Cigarette/Vaping Use Never Used 07/08/25 08:43 Thrive Assessment: Date of Thrive Assessment Date Thrive assessed 10/20/24 07/08/25 08:43 Currently or been in a relationship where the following occur: No concerns reported Const General: no acute distress HENMT Head: Yes normal to inspection General nose exam: Normal external nose present Eyes General: appearance normal, both eyes and all related structures Neck Neck: Yes supple Resp Effort & Inspection: normal respiratory effort Auscultation: clear to auscultation bilaterally Cardio Rhythm: regular rhythm Heart sounds: S1 normal heart sound present and S2 normal heart sound present Extrem Other: There is about 5 cm mobile firm mass palpable in the left posterior shoulder scapular region, no overlying skin changes Coding Level of Care Code Est Pt Level 3 (56724) Diagnoses Mass of joint of left shoulder M25.812 HTN (hypertension) I10 Assessment & Plan Assessment & Plan (1) Mass of joint of left shoulder: Code(s): M25.812 - Other specified joint disorders, left shoulder Category: Medical Plan: Obtain ultrasound of the soft tissue to evaluate, meloxicam as prescribed (2) HTN (hypertension): Code(s): I10 - Essential (primary) hypertension Category: Medical Plan: Continue current medications Orders: Orders US Extremity Nonvas Limited LT Today M25.812 - Other specified joint disorders, left shoulder Medications: New meloxicam 15 mg PO DAILY 14 tabs 0RF
--- OUTSIDE RECORDS SUMMARY | 2025-07-08 09:00 | XMS_ITS | Clinical Summary ---
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 Role Phone Unavailable Primary Care Provider [...] nts (1 - 1-dose 75+ series) 2014 Falls Risk Assessment 10/06/2022 Osteoporosis Screening (Bone Density Screening) 10/06/2022 Social Influencers of Health Screening 10/06/2022 Depression Screening 11/03/2024 COVID-19 Vaccine ( - 2023-2 5 season) 2025 Influenza Vaccine (#1) 2025 HIB Vaccines Aged Out No longer eligi [...] age to complete this topic Meningococcal B Vaccine Aged Out No l onger eligible based on patient's age to complete this topic RSV Immunization Patients Un julieth 20 months Aged Out No longer eligible b ased on patient's age to complete this topic Varicella Vaccines Aged Out No longer eligible based on patient's age to complete this topic
== END 2025-07-08 09:23 | disposition home or self-care (01) ==
LOC: HO.HMCC 08:33
PROVIDERS: PCP Internal Medicine; Visit Provider Internal Medicine
DX: M25.812 Other specified joint disorders, left shoulder (principal); I10 Essential (primary) hypertension

== ENCOUNTER → 2025-07-08 08:32 | Outpatient (BNVA) | payer MEDICARE, SELFPAY | PROVIDERS: PCP Internal Medicine; Visit Provider Internal Medicine | DX: M25.812 Other specified joint disorders, left shoulder (principal); I10 Essential (primary) hypertension | CPT/HCPCS: 99212 ==

== ENCOUNTER 2025-07-08 10:58 | Outpatient (REF) | payer MEDICARE, SELFPAY ==
--- NOTE | ~2025-07-08 | US_ITS ---
Examination: US Extremity Nonvas Limited Lt TECHNIQUE: Grayscale and color Doppler imaging was performed in the region of the palpable mass in the proximal left arm, upper extremity INDICATION: Palpable mass in the posterior left shoulder region over the scapular area Comparison shoulder x-ray on Mar 10 2023 FINDINGS: Superficial subcutaneous soft tissues posterior left shoulder, there is a mass that measures 2.2 x 1.3 x 2.5 cm (CC by transverse by AP). The mass is isodense slightly hyperechoic relative to adjacent subcutaneous adipose tissues. It is oval in shape and well circumscribed with a thin capsule. The mass possibly contains thin septations. Color Doppler imaging was noncontributory. US/US Extremity Nonvas Limited LT IMPRESSION: There is a solid-appearing mass in the superficial subcutaneous soft tissues posterior to the left shoulder measuring 2.2 x 1.0 x 2.5 cm. Ultrasound provides limited characterization of musculoskeletal soft tissue masses. Soft tissue masses are better characterized using MRI without and with IV contrast. Electronically signed by: Kaveh Mcgee MD 07/08/2025 12:23 PM EDT
== END 2025-07-08 10:59 | disposition home or self-care (01) ==
LOC: HO.US 10:58
PROVIDERS: PCP Internal Medicine; Visit Provider Internal Medicine
DX: M25.812 Other specified joint disorders, left shoulder (principal)
CPT/HCPCS: 76882

== ENCOUNTER → 2025-07-08 11:02 | Outpatient (BNV) | payer MEDICARE, SELFPAY | PROVIDERS: PCP Internal Medicine; Visit Provider Radiology Diagnostic Radiology | DX: R22.32 Localized swelling, mass and lump, left upper limb (principal) | CPT/HCPCS: 76882 ==

== ENCOUNTER 2025-07-15 08:10 | Outpatient (REF) | payer MEDICARE, SELFPAY ==
--- NOTE | ~2025-07-15 | MR_ITS ---
EXAMINATION: MRI Shoulder without contrast, left TECHNIQUE: Multiplanar multisequence MR imaging through an upper extremity joint without contrast. INDICATION: Left shoulder pain, rotator cuff tear PRIOR: None FINDINGS: Rotator Cuff: There is a full-thickness tear of supraspinatus and infraspinatus tendons with 5 cm retraction. There is a small focal irregular deep undersurface tear of the lateral subscapularis tendon. Subscapularis tendon otherwise appears thickened with increased signal. Labrum: Superior labrum is degenerated and frayed. Long biceps tendon: Long biceps tendon is not visualized in the joint capsule most consistent with tear and retraction in the upper biceps groove. Acromioclavicular joint: There is mild degenerative change with mild osteophyte formation and superior acromioclavicular ligament thickening. There is a small subacromial spur. Acromial morphology is nearly flat, type I. There is mild reactive marrow signal changes in the acromion. The humeral head abuts the undersurface of acromion. Axillary pouch: There is a minimally complex joint effusion. Axillary pouch is thickened with increased signal on the humeral side but grossly intact. Articular cartilage: Deep partial-thickness cartilage loss is noted in the medial humeral head. Glenoid cartilage appears intact. Bones/Marrow: There are marginal osteophytes involving humeral head and glenoid. There are no marrow replacing lesions. Soft tissues: There is severe atrophy of supraspinatus muscle with mild edema. There is fatty replacement of the superior half of infraspinatus muscle and mild to moderate fatty streaking in the central belly. There is no edema of the muscle. MR/MR shoulder LT wo/w con IMPRESSION: Massive rotator cuff tear. Supraspinatus and infraspinatus tendons are torn and retracted 5 cm. There is severe atrophy of supraspinatus tendon with low level muscle edema consistent with ongoing atrophy. There is chronic fatty replacement of the superior half of infraspinatus muscle and fatty streaking in the central fibers. There is no edema consistent with a chronic change. Additionally, there is rotator cuff arthropathy. Humeral head abuts the undersurface of acromion and there is mild reactive change in the acromion Furthermore, there is a small subacromial spur. There is a deep undersurface tear of lateral subscapularis tendon and patellar tendinopathy. Long biceps tendon is torn and retracted to the upper biceps groove. Moderate degenerative changes in the glenohumeral joint. Mild AC joint arthropathy. There is a joint effusion is suspected synovitis. Superior labrum is degenerated and frayed. Electronically signed by: Kaveh Mcgee MD 07/15/2025 10:08 AM EDT
--- OUTSIDE RECORDS SUMMARY | 2025-07-15 08:29 | XMS_ITS | Clinical Summary ---
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
== END 2025-07-15 08:11 | disposition home or self-care (01) ==
LOC: HO.MRI 08:10
PROVIDERS: PCP Internal Medicine; Visit Provider Internal Medicine
DX: M25.812 Other specified joint disorders, left shoulder (principal); I10 Essential (primary) hypertension
CPT/HCPCS: 73223; A9585

== ENCOUNTER → 2025-07-15 08:10 | Outpatient (BNV) | payer MEDICARE, SELFPAY | PROVIDERS: PCP Internal Medicine; Visit Provider Radiology Diagnostic Radiology | DX: M75.122 Complete rotator cuff tear or rupture of left shoulder, not specified as traumatic (principal) | CPT/HCPCS: 73223 ==

== ENCOUNTER 2025-07-21 07:21 | Outpatient (REF) | payer MEDICARE, SELFPAY ==
--- OUTSIDE RECORDS SUMMARY | 2025-07-21 07:24 | XMS_ITS | Clinical Summary ---
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
[2025-07-21 08:40] LABS: MANUAL DIFF FLAG NO
[2025-07-21 08:45] LABS: Hematocrit 38.8 % (37.0-47.0); Hemoglobin 12.9 g/dl (12.0-16.0); Imm Gran Abs Auto 0.02 X10*3/uL (0.00-0.03); Imm Gran Pct Auto 0.3 % (0.0-0.4); Lymphocytes Absolute Auto 2.2 X10*3/uL (1.2-4.9); Mean Corpuscular HGB Conc 33.2 g/dl (31.0-35.0); Mean Corpuscular Hemoglobin 29.5 pg (27.0-33.0); Mean Corpuscular Volume 88.8 fL (80.0-98.0); NRBC Abs Auto 0.000 X10*3/uL (0.0-0.012); NRBC Pct Auto 0.0 /100WBC (0.0-0.2); Platelet Count 284 X10*3/uL (160-400); Red Blood Count 4.37 X10*6/uL (4.20-5.50); White Blood Count 6.3 X10*3/uL (4.8-10.8)
[2025-07-21 09:29] LABS: Hemoglobin A1C 136.1357 umol/L; Total Hemoglobin (HGBA1C) 3376.9178 umol/L
[2025-07-21 09:39] LABS: B Type Natriuretic Peptide 54 pg/mL (<100)
[2025-07-21 10:39] LABS: Alanine Aminotransferase 19 U/L (0-31); Albumin Level 4.0 g/dL (3.5-5.0); Alkaline Phosphatase 87 U/L (39-117); Anion Gap 10 (12-20); Aspartate Amino Transferase 22 U/L (5-31); Blood Urea Nitrogen 23 mg/dL (9-16); Calcium 9.4 mg/dL (8.4-10.2); Carbon Dioxide 27 mmol/L (22-29); Chloride 107 mmol/L (96-108); Estimated Glomerular Filt Rate > 60; Potassium 4.4 mmol/L (3.3-5.1); Sodium 140 mmol/L (135-145); Total Protein 7.1 g/dL (6.5-8.0)
== END 2025-07-21 07:22 | disposition home or self-care (01) ==
LOC: HO.HMGCLDS 07:21
PROVIDERS: PCP Internal Medicine; Visit Provider Internal Medicine
DX: I10 Essential (primary) hypertension (principal); E78.5 Hyperlipidemia, unspecified; R06.09 Other forms of dyspnea; R73.9 Hyperglycemia, unspecified
CPT/HCPCS: 36415; 80053; 83036; 83880; 84443; 85025

== ENCOUNTER → 2025-08-23 08:35 | Outpatient (REF) | payer MEDICARE, SELFPAY ==
--- NOTE | 2025-08-23 08:40 | CA_ITS ---
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 Normal LV ejection fraction of 60 65% with elevated filling pressures 2. Calcific aortic and mitral valve changes noted with normal cardiac valvular Dopplers 3. Mildly dilated left atrium 4. No gross pericardial effusion Findings Procedure Information The patient declines contrast. Left Ventricle Normal left ventricular size, thickness, and systolic function. The visually estimated ejection fraction is between 60-65%. Regional wall motion abnormalities can not be excluded due to suboptimal endocardial definition. Spectral Doppler is indicative of an impaired relaxation filling pattern. Elevated filling pressures. There is mild septal asymmetric hypertrophy. Right Ventricle Normal right ventricular cavity size and systolic function. Atria The left atrium is mildly dilated. Interatrial shunt cannot be excluded. The right atrium is likely dilated. Aortic Valve There is mild calcification of the aortic valve. There is no aortic valve stenosis. There is no aortic valve regurgitation. Mitral Valve There is mild anterior and moderate posterior mitral leaflet thickening. There is moderate mitral annular calcification. There is trace mitral valve regurgitation. There is no mitral valve stenosis. Pulmonic Valve The pulmonic valve was not well visualized. Tricuspid Valve Likely normal tricuspid valve structure and function. Tricuspid regurgitation envelope is inadequate for calculation of right ventricular systolic pressure. Normal right atrial pressure. Great Vessels All visible segments of the aorta are normal in size. The pulmonary artery was not well visualized. There is no dilatation of the ascending aorta measuring 3.40 cm. Venous The inferior vena cava is normal in size and collapses greater than 50% with inspiration. Pericardium/Pleural There is no evidence of pericardial effusion. Prior Study Comparison No prior study available for comparison. Measurements 2D Linear Measurements IVSd: 1.22 0.6-0.9/0.6-1.0 cm LVIDd: 3.82 3.9-5.3/4.2-5.9 cm LVIDd Index: 2.30 2.4-3.2/2.2-3.1 cm/m2 LVIDs: 2.51 2.0-3.6 cm LVPWd: 0.84 0.7-1.1 cm LA Diam: 3.40 2.7-3.8/3.0-4.0 cm LAIDs Index: 2.05 1.5-2.3 cm/m2 LV Mass: 153.67 67-162/88-224 g LV Mass Index: 92.57 43-95/49-115 g/m2 LVOT Diam: 2.00 3.0+(-)1.3 cm 2D Systolic Function EF Teich: 64.00 >55% Mitral Valve MV VTI: 0.31 MV Pk Papito: 1.34 MV Mn Papito: 0.81 MV Pk Grad: 7.00 MV Mn Grad: 3.00 MV Pk E: 0.74 MV PK A: 1.15 MV Decel Time: 214.00 E/A: 0.60 E'Lateral: 6.09 E'Medial: 3.70 E/E' Med: 19.90 E/E' Lat: 12.10 PHT: 63.00 MVA PHT: 3.49 MVA Continuity: 2.21 Decel [place]: 3.45 Aortic Valve AoV Pk Papito: 1.23 AoV Mn Papito: 0.86 AoV VTI: 0.22 AoV Pk Grad: 6.00 Aov Mn Grad: 3.00 MIKA Cont.VTI: 3.01 LVOT LVOT Pk Papito: 1.01 LVOT Mn Papito: 0.74 LVOT VTI: 0.22 LVOT Pk Grad: 4.00 LVOT Mn Grad: 2.00 LVOT Diam: 2.00 LVOT Area: 3.14 Diastolic Function MV Pk E: 0.74 MV Pk A: 1.15 E/A: 0.60 E'Medial: 3.70 E/E' Med: 19.90 E' Laterial: 6.09 E/E' Lat: 12.10 Right Ventricle TAPSE (mm): 18.40 TVS' Papito: 10.70 Tricuspid Valve RA Press: 3.00 Great Vessels Aorta Sinus of Valsalva: 3.00 2.0-3.5 cm Ao Asc: 3.40 2.1-3.4 cm Updated in Other Vendor System with Status of Final Scotty Lr MD electronically signed on 08/23/2025 6:50:34 PM with status of Final
== END ==
LOC: HO.CARD 08:35
PROVIDERS: PCP Internal Medicine; Visit Provider Internal Medicine
DX: R06.09 Other forms of dyspnea (principal)
CPT/HCPCS: 93306

== ENCOUNTER → 2025-08-23 08:40 | Outpatient (BNV) | payer MEDICARE, SELFPAY | PROVIDERS: PCP Internal Medicine; Visit Provider Internal Medicine Cardiovascular Disease | DX: I42.2 Other hypertrophic cardiomyopathy (principal); I34.81 Nonrheumatic mitral (valve) annulus calcification; I51.7 Cardiomegaly | CPT/HCPCS: 93306 ==